=== PATIENT | female | born 1940 | race Caucasian/White ===

== ENCOUNTER 2017-03-27 12:36 | Observation (INO) | payer MEDICARE, OTHER, SELFPAY ==
[2017-03-27] VITALS (10 sets, daily range): BP systolic 137–182; BP diastolic 69–90; PULSE 51–82; RESP 14–16; TEMP 36.4–36.7; O2SAT 98–99; BMI 27.6; BMI 23.9; BMI 24.0
--- NOTE | 2017-03-27 13:06 | EKG12_ITS ---
Test Reason : SYNCOPE Blood Pressure : / mmHG Vent. Rate : 052 BPM Atrial Rate : 052 BPM P-R Int : 184 ms QRS Dur : 144 ms QT Int : 516 ms P-R-T Axes : 056 -36 083 degrees QTc Int : 479 ms Sinus bradycardia Left axis deviation Left bundle branch block Abnormal ECG Confirmed by RAN FORMAN, AMY ([id number]), metropolitan editor ELIZABETH BE ([id number] on 03/30/2017 8:39:12 AM Referred By: BRAYAN Confirmed By:AMY TONG MD
--- NOTE | 2017-03-27 13:06 | CT_ITS ---
STUDY: CT BRAIN WITHOUT CONTRAST REASON FOR EXAM: Female, 76 years old. Syncopal episode with closed head injury. RADIATION DOSAGE (If Supplied By Facility): CTDIvol = ( 44.99 ) mGy, DLP = ( 762.36 ) mGycm TECHNIQUE: Transaxial CT imaging of the brain was performed without administration of intravenous contrast material. Multiplanar reformations are submitted for interpretation. Individualized dose optimization techniques were used for this CT. COMPARISON: CT of the head dated September 23, 2016. FINDINGS: Normal soft tissue structures. Patient has had a left-sided lateral frontal and temporal craniotomy Normal size ventricles and extra-axial spaces for the patient's age. There are areas of decreased attenuation within the white matter tracts of the supratentorial brain, consistent with microvascular disease changes. There is encephalomalacia within the lateral left frontal lobe probably related to previous infarct or trauma. Normal basal ganglia and thalami. Normal brainstem. There is mild cerebellar atrophy. There is no intracranial hemorrhage. There is patchy atherosclerotic calcification of intracranial arteries. Normal visualized paranasal sinuses. CT/Brain/Head without Contrast IMPRESSION: 1. Chronic involutional changes of the brain. 2. Postoperative changes of the left cranium. 3. No CT evidence of acute intracranial hemorrhage. Electronically Signed: Alyssa Chan MD at 15:29 EST , Service support ,
[2017-03-27 13:31] LABS: ALB/GLOB Ratio 1.1 RATIO (0.9-2.4); AST(SGOT) 20 U/L (15-37); Alanine Aminotransfer ALT/SGPT 26 U/L (13-56); Albumin, Serum 3.8 g/dL (3.2-5.0); Alkaline Phosphatase 84 U/L (45-117); Anion Gap 7 (5-15); BUN 12 mg/dL (7-18); BUN/Creat Ratio 11.4 RATIO (10-20); Calcium,Total 8.8 mg/dL (8.5-10.1); Chloride 101 mmol/L (98-107); Creatinine, Serum 1.05 mg/dL (0.55-1.02); EST Glomerular Filtration Rate 54 mL/min (>60); Est Glom Filt Rate - Afr Amer 65 mL/min (>60); Estimated Creatinine Clearance 32.74 ml/min; Globulin 3.5 g/dL (2.2-4.2); Glucose 101 mg/dL (74-106); Potassium 3.6 mmol/L (3.5-5.1); Protein, Total 7.3 g/dL (6.4-8.2); Sodium Level 136 mmol/L (136-145)
[2017-03-27 13:35] LABS: Absolute Lymphocyte Count 1.93 X10^3/ul (0.83-4.51); Absolute Neutrophil Count 4.2 X10^3/uL (2.0-7.7); Basophil# 0.02 X10^3/uL; Basophil% 0.3 % (0-1); Eosinophil# 0.05 X10^3/uL; Eosinophils% 0.7 % (0-5); Hematocrit 36.2 % (37-47); Hemoglobin 12.1 g/dl (12.0-15.0); Lymphocyte # 1.93 X10^3/ul (4.0); Lymphocyte % 28.5 % (19-41); Mean Corp Hgb Conc 33.4 g/gl (32-36); Mean Corpuscular Hgb 28.9 pg (27.0-32.0); Mean Corpuscular Volume 86.4 fL (81-99); Mean Platelet Vol. 9.6 fl (6.2-12.0); Monocyte# 0.52 X10^3/uL; Monocyte% 7.7 % (0-10); Neutrophil # 4.24 X10^3/uL (2.7-7.7); Neutrophil % 62.7 % (47-70); Platelet Count 228 K/mm3 (150-450); RBC Distribution Width SD 40.9 fl (35.1-43.9); Red Blood Count 4.19 M/mm3 (4.2-5.4); White Blood Count 6.8 K/mm3 (4.4-11.0)
[2017-03-27 13:37] LABS: POSITIVE COUNT NO; POSITIVE DIFFERENTIAL NO; POSITIVE MORPHOLOGY NO
--- NOTE | 2017-03-27 14:15 | RAD_ITS ---
STUDY: X-RAY CHEST REASON FOR EXAM: Female, 76 years old. Cough. TECHNIQUE: PA and lateral views of the chest. COMPARISON: Prior comparison studies are not available for review at this time. FINDINGS: Cardiac monitoring leads are present. The lungs are clear and expanded. Surgical clips appear to be within the right chest. There is no demonstrated pleural abnormality. There is borderline cardiomegaly. Normal mediastinum and theodora. Normal visualized pulmonary arteries. There is atherosclerotic calcification of the aortic arch with tortuosity. Normal visualized thoracic spine. There are degenerative changes of both shoulders. There is no demonstrated abnormality of the visualized soft tissue structures of the upper abdomen. RAD/Chest PA and Lateral IMPRESSION: No radiographic evidence of acute cardiopulmonary disease. Electronically Signed: Alyssa Chan MD at 15:31 EST , Service support ,
[2017-03-27 15:26] LABS: Bacteria 0 SEEN /hpf (None Seen); Mucous, Urine 0 SEEN /hpf (<or=2+)
[2017-03-27 15:28] LABS: Color, Urine Yellow (Yellow); Glucose, Dipstick Normal (Normal); Ketone-Dipstick Negative (Negative); Leukocyte Esterase-Dipstick 100 /ul (Negative); Nitrite-Dipstick Negative (Negative); Occult Blood-Urine 10 /ul (Negative); Protein-Dipstick Negative (Negative); Urine Bilirubin Dipstick Negative (Negative); Urine Clarity Sl. Cloudy (Clear); Urine Urobilinogen Normal (Normal)
--- NOTE | 2017-03-27 15:39 | ED.VISSUMM ---
- ER Visit Summary Date of Service: 03/27/17 Chief Complaint: Passed out History of Present Illness: The patient is a 76 F presenting with a syncopal event. She states that she had a flulike illness 3 days ago that resolved but she did have some decreased p.o. intake for a few days. She basically just rested but admits that she probably did not drink enough water. She took all of her medications this morning and then went to the grocery store and was walking around quite a lot. While she was walking down an aisle, she felt lightheaded and then had a syncopal event and struck the back of her head. She woke up immediately and was not confused afterwards. She recalls feeling lightheaded and then recalls waking up on the floor but denies any associated injuries. She does not have a headache at this time. She basically feels back to normal now but in speaking with her and her family, it sounds like she has had trouble with lightheadedness for months. Physical Examination: Vitals are within normal limits except for mild hypertension at 182/90. Pulse is 56. Afebrile. Not in distress. Neck is supple. She is mildly bradycardic but no murmur. Lungs are clear bilaterally with good air movement. Neurologic exam is normal. Mental status exam normal. She has no signs of head trauma. Test Results: Labs are basically within normal limits. Flu swab negative. Chest x-ray negative. CT head negative. EKG reveals sinus bradycardia but no sign of block. Emergency Department Course and Treatment: She was given IV fluids and observed. Workup here basically unremarkable. Heart rate is in the 50s. Treatment Plan: She is on propranolol 80 mg twice a day which certainly could be contributing to her bradycardia and syncope. We discussed treatment options and elected to admit her as observation. Disposition: Admit telemetry observation Impression: Initial encounter syncope, bradycardia This note was generated with [employer] dictation software. It may contain incorrect words, spelling, and punctuation that were not noted in review of the chart prior to signing ED Disposition - Plan for ED Patient: Chief Complaint: Syncope Referrals: Rocío Geronimo MD [Primary Care Provider] -
[2017-03-27 15:50] LABS: Hyaline Cast 5-10 SEEN /lpf (0-5); Red Blood Cells-Urine 0-5 SEEN /hpf (0-5); Squamous Epithelial Cells - UA 0-5 SEEN /hpf (5-10); White Blood Cells 5-10 SEEN /hpf (0-5)
--- NOTE | 2017-03-27 15:56 | NURSING ---
PCU OBS SYNCOPE SEMENTI
--- NOTE | 2017-03-27 16:49 | PCM.HP.STD ---
Problem List (1) HTN (hypertension) Status: Chronic (2) HLD (hyperlipidemia) Status: Chronic (3) Syncope Status: Acute History of Present Illness Date of Admission: 03/27/17 Chief Complaint: Syncopal episode The patient is a 76 year old F who presents to the emergency room after a syncopal episode while grocery shopping this morning. Patient states this past Wednesday she felt like she had the flu. She states she felt generally weak and had fever, chills. Denies diarrhea, nausea, vomiting, upper respiratory symptoms. Symptoms went away gradually on their own and she states she felt generally well this morning. She denies symptoms prior to passing out this morning. She states it happened fairly quickly. She did hit the back of her head on the floor when she fell. She is unsure how long she was unconscious but thinks it was a fairly short period of time. She was helped to stand to her feet and passed out for a second time. The squad then arrived. Patient states she has actually had syncopal episodes the past 4-5 years. She has not previously sought out medical attention. Her at bedside states 3 weeks ago she had a syncopal episode at home. Patient states she believes these episodes happen when she is on her feet for an extended period of time. She has felt dizzy at times during these episodes in the past. Denies chest pain, shortness of breath, palpitations. Denies cardiac history or history of irregular heart rhythm. Denies other associated complaints. Her past medical history includes hypertension, hyperlipidemia, history of right breast cancer status post lumpectomy and radiation, s/p benign meningioma tumor resection. Past Medical History Past Medical History (Chronic Problems): Chronic Problems HTN (hypertension) (Chronic) HLD (hyperlipidemia) (Chronic) Allergies Sulfa (Sulfonamide Antibiotics) Allergy (Verified 03/27/17 12:43) Mucosal lesions meperidine [From Demerol] Adverse Reaction (Verified 03/27/17 12:43) Other metoprolol [From Toprol XL] Adverse Reaction (Verified 03/27/17 12:43) Unknown Home Medications: Ambulatory Orders Medication Instructions Recorded Ascorbic Acid [Vitamin C] 500 mg PO DAILY@0800 09/23/16 Aspirin [Aspirin, Baby] 81 mg PO DAILY@0809/23/16 Atorvastatin Calcium [Lipitor] 20 mg PO QHS 09/23/16 Calcium Carbonate [Tums Ultra 1,177 mg PO DAILY 09/23/16 Strength] Cholecalciferol (Vitamin D3) 1,000 unit PO QHS 09/23/16 [Vitamin D3] Fluticasone 0.05% [Flonase Nasal 1 spray NASAL DAILY PRN PRN 09/23/16 [place]] Indapamide 1.25 mg PO DAILY 09/23/16 Multivit-Min/Iron/Folic/Lutein 1 each PO DAILY 09/23/16 [Centrum Silver Women Tablet] [place]-3 Fatty Acids/Fish Oil [Fish 1 each PO DAILY 09/23/16 Oil 1,000 mg Capsule] Phenobarbital 30 mg PO DAILY 09/23/16 Potassium Chloride [Klor-Con 8] 8 meq PO BID 09/23/16 Propranolol HCl [Inderal (Beta 80 mg PO BID 09/23/16 Shay)] Surgical History: tonsillectomy, - - Benign meningioma tumor resection, right breast lumpectomy Psychiatric History: No pertinent psych hx [employer]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 Denies: Chest Pain, Palpitations Respiratory: Denies: Cough, Shortness of breath at rest, Sputum production Gastrointestinal: Denies: Abdominal Pain, Nausea, Vomiting Genitourinary: Denies: Dysuria Musculoskeletal: Denies: Joint Pain, Joint Tenderness Skin: Denies: Rash, Wounds Neurological: Denies: Numbness, Tingling, Focal weakness Psychiatric: Denies: Anxiety, Depression, Homicidal Ideations, Suicidal Ideations Hematologic/ Lymphatic: Denies: Easy Bruising, Easy Bleeding VTE Information - Inpt Only VTE Present on Admission: No VTE Mechan Device Prophylaxis: None VTE Pharm Prophylaxis ordered?: Yes Patient Problems: Active and Suspected Problems Syncope (Acute) - Physical Exam General: Alert, Oriented x3, Cooperative, No apparent distress HEENT: Atraumatic, PERRLA, EOMI, Normocephalic Neck: Supple, No JVD, Negative Carotid Bruits Lungs: Clear to auscultation, Normal air movement Cardiovascular: Regular Rhythm, Normal S1, Normal S2, No murmurs, Bradycardic Abdomen: Bowel Sounds Present, Soft, Non Tender, Non-Distended Extremities: No clubbing, No cyanosis, No edema, Capillary Refill Less than 3 Seconds Skin: No rashes, No breakdown Musculoskeletal: No Tenderness to Palpation of Joints or Extremities Neurological: Cranial nerves II-XII grossly intact, Neuro grossly intact Psych/Mental Status: Normal Affect, Appropriate Vital Signs Temp Pulse Resp BP Pulse Ox 97.5 F L 82 14 178/80 H 99 03/27/17 12:43 03/27/17 16:07 03/27/17 16:07 03/27/17 16:07 03/27/17 16:07 Oxygen Delivery Method Room Air Weight: 64.1 kg Body Mass Index (BMI) 27.6 Microbiology Past 72 Hours 03/27/17 13:48 Influenza Types A,B Direct FA (MARC) - Final Mucosa - Nose Laboratory Tests Past 24 Hrs 03/27/17 03/27/17 03/27/17 12:45 12:45 15:20 WBC 6.8 RBC 4.19 L Hgb 12.1 Hct 36.2 L MCV 86.4 MCH 28.9 MCHC 33.4 RDW 13.0 RDW Differential 40.9 Plt Count 228 MPV 9.6 Immature Gran % (Auto) 0.100 Neut % (Auto) 62.7 Lymph % (Auto) 28.5 [place] % (Auto) 7.7 Eos % (Auto) 0.7 Baso % (Auto) 0.3 Absolute Neuts (auto) 4.2 Absolute Lymphs (auto) 1.93 Total Counted Not Reportable Sodium 136 Potassium 3.6 Chloride 101 Carbon Dioxide 28.0 Anion Gap 7 BUN 12 Creatinine 1.05 H Estim Creat Clear Calc 32.74 Est GFR (MDRD) Af Amer 65 Est GFR (MDRD) Non-Af 54 L BUN/Creatinine Ratio 11.4 Glucose 101 Calcium 8.8 Total Bilirubin 0.40 AST 20 ALT 26 Alkaline Phosphatase 84 Total Protein 7.3 Albumin 3.8 Globulin 3.5 Albumin/Globulin Ratio 1.1 Urine Color Yellow Urine Clarity Sl. Cloudy Urine pH 7.0 Ur Specific Agness 1.010 Urine Protein Negative Urine Glucose (UA) Normal Urine Ketones Negative Urine Occult Blood 10 H Urine Nitrite Negative Urine Bilirubin Negative Urine Urobilinogen Normal Ur Leukocyte Esterase 100 H Urine RBC 0-5 SEEN Urine WBC 5-10 SEEN Ur Squamous Epith Cells 0-5 SEEN Urine Bacteria 0 SEEN Hyaline Casts 5-10 SEEN Urine Mucus 0 SEEN Assessment/Plan Active and Suspected Problems Syncope (Acute) 1. Syncope-Suspect secondary to bradycardia as a result of high dose beta shay. Patient previously on propanolol 80 mg p.o. twice daily. This was discontinued and she was started on metoprolol 25 mg twice daily. Complete echocardiogram. Cardiac enzymes. Monitor telemetry. Check orthostatic vitals. Check TSH, mag. Patient mildly dehydrated with recent illness and poor oral intake. Gentle IV fluids. Chest x-ray unremarkable. Brain CT with chronic changes. Urinalysis unremarkable. 2. Hypertension-BP elevated on admission,181/69. Propanolol home dose discontinued given bradycardia. Started on metoprolol 25 mg twice daily. Continue to monitor blood pressure make further adjustments as needed. Hydralazine as needed Q4 for systolic greater than 160. 3. Hyperlipidemia-continue statin. Check lipid panel in a.m. DVT prophylaxis-Heparin SC, SCDs. This patient was seen by DANI Hancock under the supervision of Dr. Johns.
--- NOTE | 2017-03-27 17:15 | ECHOD_ITS ---
Reason For Study: SYNCOPE/NEAR SYNCOPE Procedure This was a 2D Doppler, Color Flow transthoracic echocardiogram. Exam performed portable in patient room. Left Ventricle Normal LV size. Left ventricular systolic function is normal. The estimated ejection fraction is 65 %. Transmitral and pulmonary venous doppler flow suggestive of impaired relaxation of left ventricle. No regional wall motion abnormalities noted. Right Ventricle Normal RV size. Normal systolic function. Atria Normal left atrium. Normal right atrium. Mitral Valve Normal mitral valve. Tricuspid Valve Normal tricuspid valve. Mild (1+) tricuspid valve insufficiency. Pulmonary artery systolic pressure is 29 mmHg. Aortic Valve Normal aortic valve. Pulmonic Valve Normal pulmonic valve. Great Vessels Normal aortic root. The pulmonary artery is normal size. Normal inferior vena cava. Pericardium/Pleural No pericardial effusion. MMode/2D Measurements & Calculations LVIDd: 4.3 cm IVSd: 0.89 cm Ao root diam: 2.3 cm LVIDs: 2.9 cm LVPWd: 0.92 cm LA dimension: 3.3 cm RVDd: 3.4 cm FS: 31.6 % LAV(MOD-bp): 27.4 ml LA A4 area: 11.4 cm2 LAV(MOD-bp) Indexed: 17.0 ml/m2 LAV(MOD-sp2): 26.2 ml LAV(MOD-sp4): 29.4 ml Doppler Measurements & Calculations MV E max joe: 93.1 cm/sec Lat Peak E' Joe: 7.8 cm/sec Med Peak E' Joe: 11.0 cm/sec MV A max joe: 139.5 cm/sec E/E' lat: 11.9 E/E' med: 8.5 MV E/A: 0.67 Ao V2 max: 176.6 cm/sec LV V1 max: 95.3 cm/sec PA V2 max: 131.0 cm/sec Ao max P.5 mmHg LV V1 max P.6 mmHg TR max joe: 245.5 cm/sec TR max P.2 mmHg Interpretation Summary Normal LV size. Left ventricular systolic function is normal. The estimated ejection fraction is 65 %. Transmitral and pulmonary venous doppler flow suggestive of impaired relaxation of left ventricle Mild (1+) tricuspid valve insufficiency. Pulmonary artery systolic pressure is 29 mmHg. Ordering Physician: DANI Hancock Referring Physician: Rocío Geronimo Performed By: Maya Esposito, NARESH, RVT
[2017-03-27 17:46] LABS: Magnesium 2.1 mg/dL (1.6-2.6); Thyroid Stim Hormone (TSH) 3.38 uIU/mL (0.358-3.74)
--- NOTE | 2017-03-27 18:15 | ED.RN ---
Reynaldo from pharmacy phones questioning patient being on Metoprolol due to allergy. Patient states she is unsure what her allergic reaction was. Updated Dr. Johns. D/C Metoprolol. Dr. Johns also updated on orthostatic bp's.
[2017-03-27] MEDS: Atorvastatin Calcium 20 MG Tablet PO (21:26)
[2017-03-27] MEDS: Heparin Injection 5,000 UNITS/ML Syringe 5000 UNITS SC (21:26)
[2017-03-28] VITALS (11 sets, daily range): BP systolic 137–166; BP diastolic 64–86; PULSE 56–81; RESP 15–18; TEMP 36.2–36.7; O2SAT 97–99
[2017-03-28] MEDS: 0.9% Normal Saline 1,000 ML 75 ML IV ×2 (05:45→18:37)
[2017-03-28] MEDS: Aspirin 81 MG TAB.CHEW PO (08:21)
[2017-03-28] MEDS: Heparin Injection 5,000 UNITS/ML Syringe 5000 UNITS SC ×2 (08:22→21:23)
[2017-03-28] MEDS: Calcium Carbonate 500 MG Tablet 1000 MG PO (08:22)
[2017-03-28 08:32] LABS: Anion Gap 7 (5-15); BUN 12 mg/dL (7-18); BUN/Creat Ratio 15.6 RATIO (10-20); Calcium,Total 8.8 mg/dL (8.5-10.1); Chloride 104 mmol/L (98-107); Cholesterol 198 mg/dL (200); Creatinine, Serum 0.77 mg/dL (0.55-1.02); EST Glomerular Filtration Rate 77 mL/min (>60); Est Glom Filt Rate - Afr Amer 94 mL/min (>60); Estimated Creatinine Clearance 36.12 ml/min; Glucose 90 mg/dL (74-106); High Density Lipoprotein 61 mg/dL; Potassium 3.4 mmol/L (3.5-5.1); Sodium Level 140 mmol/L (136-145); Triglycerides 145 mg/dL; Very Low Density Lipoprotein 29 mg/dL (5-40)
--- NOTE | 2017-03-28 10:57 | PN_ITS ---
Patient Problems: Active and Suspected Problems Syncope (Acute) Subjective: Patient seen and examined. Resting in chair reading a magazine. Denies further dizziness, syncope. Denies chest pain, shortness of breath. She denies other complaints at this time. - Physical Exam General: Alert, Oriented x3, Cooperative, No apparent distress HEENT: Atraumatic, PERRLA, EOMI, Normocephalic Neck: Supple, No JVD, Negative Carotid Bruits Lungs: Clear to auscultation, Normal air movement Cardiovascular: Regular rate, Regular Rhythm, Normal S1, Normal S2, No murmurs Abdomen: Bowel Sounds Present, Soft, Non Tender, Non-Distended Extremities: No clubbing, No cyanosis, No edema, Capillary Refill Less than 3 Seconds Skin: No rashes, No breakdown Musculoskeletal: No Tenderness to Palpation of Joints or Extremities Neurological: Cranial nerves II-XII grossly intact, Neuro grossly intact Psych/Mental Status: Normal Affect, Appropriate Vital Signs Temp Pulse Resp BP Pulse Ox 98.1 F 63 16 166/77 H 99 03/28/17 10:36 03/28/17 10:36 03/28/17 10:36 03/28/17 10:36 03/28/17 10:36 Oxygen Delivery Method Room Air Weight: 57.5 kg Body Mass Index (BMI) 23.9 Orthostatic Vital Signs Start: 03/27/17 17:41 Freq: q24h Status: Active Protocol: Activity Type Activity Date Activity User E-Sign Co-Sign Detail Recorded Client Recorded Date Recorded By Document 03/28/17 04:00 EY [id number] 03/28/17 04:52 EY 03/28/17 04:00 Orthostatic Vitals Standing -Blood Pressure (90/60-120/80) 137/86 H -Extremity Use Left Arm -Pulse Rate (60-100) 61 Sitting -Blood Pressure (90/60-120/80) 150/68 H -Extremity Use Left Arm -Pulse Rate (60-100) 60 Lying -Blood Pressure (90/60-120/80) 147/64 H -Extremity Use Left Arm -Pulse Rate (60-100) 57 L Intake and Output for Last 24 Hours 03/26/17 03/27/17 03/28/17 23:59 23:59 23:59 Intake Total 646 / 646 544 / 544 Balance 646 / 646 544 / 544 Laboratory Tests Past 24 Hrs 03/27/17 03/27/17 03/27/17 17:05 17:40 21:08 Sodium Potassium Chloride Carbon Dioxide Anion Gap BUN Creatinine Estim Creat Clear Calc Est GFR (MDRD) Af Amer Est GFR (MDRD) Non-Af BUN/Creatinine Ratio Glucose Calcium Magnesium 2.1 Troponin I < 0.02 < 0.02 Triglycerides Cholesterol LDL Cholesterol VLDL Cholesterol HDL Cholesterol TSH 3.38 03/28/17 03/28/17 03/28/17 01:14 07:40 07:40 Sodium 140 Potassium 3.4 L Chloride 104 Carbon Dioxide 29.0 Anion Gap 7 BUN 12 Creatinine 0.77 Estim Creat Clear Calc 36.12 Est GFR (MDRD) Af Amer 94 Est GFR (MDRD) Non-Af 77 BUN/Creatinine Ratio 15.6 Glucose 90 Calcium 8.8 Magnesium Troponin I < 0.02 < 0.02 Triglycerides 145 Cholesterol 198 LDL Cholesterol 108 VLDL Cholesterol 29 HDL Cholesterol 61 TSH Assessment/Plan Active and Suspected Problems Syncope (Acute) Patient is a 76-year-old female admitted 03/27/17 due to syncopal episode. Her past medical history includes hypertension, hyperlipidemia, history of right breast cancer status post lumpectomy and radiation, s/p benign meningioma tumor resection. 1. Syncope-Suspect secondary to bradycardia as a result of high dose beta shay. Patient previously on propanolol 80 mg p.o. twice daily. This was discontinued and she was started on metoprolol 25 mg twice daily. Heart rate improving. Patient denies further dizziness, syncope. Echocardiogram to be completed tomorrow morning. Telemetry without arrhythmias. Orthostatic vitals negative. Troponin negative ?4. TSH and mag normal. Patient mildly dehydrated with recent illness and poor oral intake. Continue gentle IV fluids. Chest x- ray unremarkable. Brain CT with chronic changes. Urinalysis unremarkable. 2. Hypertension-BP elevated on admission,181/69. Blood pressure has since improved. Propanolol home dose discontinued given bradycardia. Started on metoprolol 25 mg twice daily. Continue to monitor blood pressure make further adjustments as needed. Hydralazine as needed Q4 for systolic greater than 160. 3. Hyperlipidemia-continue statin. Lipid panel within normal limits. DVT prophylaxis-Heparin SC, SCDs. This patient was seen by DANI Hancock under the supervision of Dr. Johns.
[2017-03-28] MEDS: Acetaminophen 325 MG Tablet 650 MG PO (21:22)
[2017-03-28] MEDS: Atorvastatin Calcium 20 MG Tablet PO (21:22)
[2017-03-28] MEDS: MELATONIN 3 MG TABLET PO (23:26)
[2017-03-29] VITALS (14 sets, daily range): BP systolic 137–177; BP diastolic 67–80; PULSE 60–92; RESP 16–18; TEMP 36.4–37.5; O2SAT 95–99
[2017-03-29] MEDS: 0.9% Normal Saline 1,000 ML 75 ML IV ×2 (04:34→23:43)
[2017-03-29 05:49] LABS: Anion Gap 10 (5-15); BUN 11 mg/dL (7-18); BUN/Creat Ratio 15.3 RATIO (10-20); Calcium,Total 8.7 mg/dL (8.5-10.1); Chloride 107 mmol/L (98-107); Creatinine, Serum 0.72 mg/dL (0.55-1.02); EST Glomerular Filtration Rate 84 mL/min (>60); Est Glom Filt Rate - Afr Amer 102 mL/min (>60); Estimated Creatinine Clearance 36.12 ml/min; Glucose 94 mg/dL (74-106); Potassium 3.2 mmol/L (3.5-5.1); Sodium Level 141 mmol/L (136-145)
[2017-03-29] MEDS: Aspirin 81 MG TAB.CHEW PO (07:52)
[2017-03-29] MEDS: 0.9% NaCl Peripheral Flush Adult/Peds IV (08:04)
[2017-03-29] MEDS: 0.9% Normal Saline 1,000 ML 999 ML IV (08:52)
--- NOTE | 2017-03-29 08:52 | PN_ITS ---
Patient Problems: Active and Suspected Problems Syncope (Acute) Subjective: CC: s/p syncope This is a 76-year-old female who had a syncopal event this morning, she did lose consciousness , she denied any chest pain, palpitations or rapid heartbeat prior to the episode. Rapid Response was activated and she was found to be hypotensive with systolic blood pressure in the 70s immediately after the event. Vitals/I&O's: Vital Signs Temp Pulse Resp BP Pulse Ox 98.0 F 71 16 153/74 H 98 03/29/17 03:20 03/29/17 08:03 03/29/17 03:20 03/29/17 03:20 03/29/17 04:10 Oxygen Delivery Method Room Air Weight: 57.5 kg Body Mass Index (BMI) 23.9 Orthostatic Vital Signs Start: 03/27/17 17:41 Freq: q24h Status: Active Protocol: Activity Type Activity Date Activity User E-Sign Co-Sign Detail Recorded Client Recorded Date Recorded By Document 03/29/17 03:20 [email or web address] [id number] 03/29/17 04:32 KG 03/29/17 03:20 Orthostatic Vitals Standing -Blood Pressure (90/60-120/80) 147/72 H -Extremity Use Left Arm -Pulse Rate (60-100) 83 Sitting -Blood Pressure (90/60-120/80) 137/80 H -Extremity Use Left Arm -Pulse Rate (60-100) 74 Lying -Blood Pressure (90/60-120/80) 153/74 H -Extremity Use Left Arm -Pulse Rate (60-100) 72 Intake and Output for Last 24 Hours 03/27/17 03/28/17 03/29/17 23:59 23:59 23:59 Intake Total 646 / 646 2347 / 2347 1252 / 1252 Output Total 1550 / 1550 600 / 600 Balance 646 / 646 797 / 797 652 / 652 Laboratory Results 03/29/17 05:00: Sodium 141, Potassium 3.2 L, Chloride 107, Carbon Dioxide 24.0, Anion Gap 10, BUN 11, Creatinine 0.72, Estim Creat Clear Calc 36.12, Est GFR ( MDRD) Af Amer 102, Est GFR (MDRD) Non-Af 84, BUN/Creatinine Ratio 15.3, Glucose 94, Calcium 8.7 03/29/17 05:00: Magnesium Pending Current Medications Acetaminophen (Tylenol) 650 mg PO Q6H PRN PRN PRN Reason: Mild Pain (scale 0-3)/T>100.7 Last Admin: 03/28/17 21:22 Dose: 650 mg Al Hydroxide/Mg Hydroxide (Mylanta Ii) 30 ml PO Q6H PRN PRN PRN Reason: Gastric Burning Aspirin (Aspirin, Baby) 81 mg PO DAILY@0800 [facility] Last Admin: 03/29/17 07:52 Dose: 81 mg Atorvastatin Calcium (Lipitor) 20 mg PO QHS [facility] Last Admin: 03/28/17 21:22 Dose: 20 mg Bisacodyl (Dulcolax) 10 mg PO DAILY PRN PRN PRN Reason: Constipation [facility]) [facility] Last Admin: 03/28/17 08:22 Dose: 1,000 mg Cholecalciferol (Vitamin D) 1,000 unit PO QHS [facility] Last Admin: 03/28/17 21:22 Dose: 1,000 unit Fluticasone Propionate (Flonase Nasal [place]) 1 spray NASAL DAILY PRN PRN PRN Reason: SINUS CONGESTION Heparin Sodium (Porcine) () 5,000 units SC BID [facility] Last Admin: 03/28/17 21:23 Dose: 5,000 units Hydralazine HCl (Apresoline) 10 mg IV Q4H PRN PRN PRN Reason: [id number] Last Admin: 03/29/17 08:03 Dose: 10 mg Sodium Chloride () 1,000 mls @ 75 mls/hr IV .[id number] [facility] Last Admin: 03/29/17 04:34 Dose: 75 mls/hr Sodium Chloride () 1,000 mls @ 999 mls/hr IV .Q1H1M ONE Stop: 03/29/17 09:43 Potassium Chloride (Kcl 10meq/100ml) 10 meq in 100 mls @ 100 mls/hr IV BOLUS Q1H [facility] Stop: 03/29/17 11:59 Magnesium Hydroxide (Milk Of Magnesia) 30 ml PO DAILY PRN PRN Reason: Constipation Melatonin (Melatonin) 3 mg PO 4X/DAY PRN PRN PRN Reason: ANXIETY Last Admin: 03/28/17 23:26 Dose: 3 mg Ondansetron HCl (Zofran) 4 mg IV Q8H PRN PRN PRN Reason: Nausea Potassium Chloride (K-Dur) 10 meq PO BIDCM ASHLYN Last Admin: 03/28/17 16:42 Dose: 10 meq Sodium Chloride () 5 - 30 ml IV UD PRN PRN Reason: SALINE FLUSH Last Admin: 03/29/17 08:04 Dose: 10 ml Assessment/Plan Active and Suspected Problems Syncope (Acute) 1. Recurrent Syncope; the event this morning was most likely vasovagal as patient was noted to be hypotensive immediately after the episode. she was given IV fluids and we will hold antihypertensive agents. Obtain echocardiogram, cardiology consultation. 2. Hypotension; discontinue her antihypertensive agents and give fluid bolus with normal saline. 3. Hypokalemia this will be replaced with potassium chloride and magnesium level will also be checked. 4. history of Essential hypertension; we will hold off on antihypertensive agents and monitor blood pressure closely. 5. history of right breast cancer status post lumpectomy and radiation . 6. DVT prophylaxis; Heparin SC, SCDs. Code Visit Inpatient E&M: [id number] Subs Hosp L3
[2017-03-29 08:56] LABS: Bedside Glucose 157 mg/dL (70-110)
--- NOTE | 2017-03-29 08:57 | NURSING ---
Pt was assisted to restroom by [facility] [employer]. Pt had a syncopal episode while sitting in the chair washing up. Pt was unresponsive, unable to follow commands, but was still conscious. Blood glucose checked and was WNL. Pt was assisted to a wheelchair and placed in bed. BP was hypotensive. HR was bradycardia. MD into see pt and placing orders. Fluid bolus started. Pt a/ox3. Does not remember any events after passing out. Resting in bed comfortably now. MD placing orders.
[2017-03-29 09:05] LABS: Magnesium 2.1 mg/dL (1.6-2.6)
[2017-03-29] MEDS: Heparin Injection 5,000 UNITS/ML Syringe 5000 UNITS SC ×2 (09:35→21:35)
[2017-03-29] MEDS: Calcium Carbonate 500 MG Tablet 1000 MG PO (09:35)
[2017-03-29] MEDS: Fluticasone 0.05% 1 SPRAY NASAL.SRY NASAL (13:45)
[2017-03-29] MEDS: Acetaminophen 325 MG Tablet 650 MG PO (13:49)
--- NOTE | 2017-03-29 14:51 | CASEMGMT ---
This RN CM to bedside with STRAUSS form for pt to sign. Pt's daughter also at bedside. STRAUSS form explained and signed by pt at this time. Original to chart and copy to pt/daughter at this time. Daughter asks questions about stress test and cardiology consult. This RN CM received update from Chayito, PCU charge, and then updated pt and daughter at this time, voices understanding. [facility]
--- NOTE | 2017-03-29 17:52 | CON.PCM_ITS ---
Reason for Consult Date of Consultation: 03/29/17 Reason for Consultation: Syncopal episode History of Present Illness: The patient is a 76 year old F who presents to the emergency room after a syncopal episode while grocery shopping this morning. Patient states this past Wednesday she felt like she had the flu. She states she felt generally weak and had fever, chills. Denies diarrhea, nausea, vomiting, upper respiratory symptoms. Symptoms went away gradually on their own and she states she felt generally well this morning. She denies symptoms prior to passing out this morning. She states it happened fairly quickly. He however could tell that it was coming on and she did hit the back of her head on the floor when she fell. She is unsure how long she was unconscious but thinks it was a fairly short period of time. She was helped to stand to her feet and passed out for a second time. Patient states she has actually had syncopal episodes the past 4 -5 years. She has not previously sought out medical attention. Her at bedside states 3 weeks ago she had a syncopal episode at home. Patient states she believes these episodes happen when she is on her feet for an extended period of time. She has felt dizzy at times during these episodes in the past. Denies chest pain, shortness of breath, palpitations. Denies cardiac history or history of irregular heart rhythm. Had an episode today while in the bathroom in the hospital and she could tell it coming on. Rapid response was called and at that time she was found she was noted to be bradycardic as well as hypotensive. She was given intravenous fluid boluses and has improved. She previously was on propranolol which has been discontinued. Past Medical History Allergies/Adverse Reactions: Allergies Sulfa (Sulfonamide Antibiotics) Allergy (Verified 03/27/17 12:43) Mucosal lesions meperidine [From Demerol] Adverse Reaction (Verified 03/27/17 12:43) Other metoprolol [From Toprol XL] Adverse Reaction (Verified 03/27/17 12:43) Unknown Home Medications: Ambulatory Orders Medication Instructions Recorded Ascorbic Acid [Vitamin C] 500 mg PO DAILY@0800 09/23/16 Aspirin [Aspirin, Baby] 81 mg PO QHS 09/23/16 Atorvastatin Calcium [Lipitor] 20 mg PO QHS 09/23/16 Calcium Carbonate [Tums Ultra 1,177 mg PO QHS 09/23/16 Strength] Cholecalciferol (Vitamin D3) 1,000 unit PO QHS 09/23/16 [Vitamin D3] Fluticasone 0.05% [Flonase Nasal 1 spray NASAL DAILY PRN PRN 09/23/16 [place]] Indapamide 1.25 mg PO DAILY 09/23/16 Multivit-Min/Iron/Folic/Lutein 1 each PO DAILY 09/23/16 [Centrum Silver Women Tablet] [place]-3 Fatty Acids/Fish Oil [Fish 1 each PO DAILY 09/23/16 Oil 1,000 mg Capsule] Potassium Chloride [Klor-Con 8] 8 meq PO BID 09/23/16 Propranolol HCl [Inderal (Beta 80 mg PO BID 09/23/16 Mya)] Phenobarbital 32.4 mg PO BID 03/27/17 Past Medical History (Chronic Problems): Chronic Problems HTN (hypertension) (Chronic) HLD (hyperlipidemia) (Chronic) Surgical History: tonsillectomy, - - Benign meningioma tumor resection, right breast lumpectomy Psychiatric History: No pertinent psych hx 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 Denies: Chest Discomfort, Shortness of Breath, Orthopnea, PND, Peripheral Edema, Palpitations, Lightheadedness, Dizziness Respiratory: Denies: Cough, Sputum Production, Hemoptysis Gastrointestinal: Denies: Hematemesis, Hematochezia, Melena Genitourinary: Denies: Dysuria, Hematuria Skin: Denies: Rash Subjectve: Pleasant lady in no apparent distress Objective: Vital Signs Temp Pulse Resp BP Pulse Ox 98.8 F 80 18 155/78 H 99 03/29/17 15:30 03/29/17 15:30 03/29/17 15:30 03/29/17 15:30 03/29/17 15:30 Oxygen Delivery Method Room Air Weight: 126 lb 12.253 oz Body Mass Index (BMI) 23.9 Orthostatic Vital Signs Start: 03/27/17 17:41 Freq: q24h Status: Active Protocol: Activity Type Activity Date Activity User E-Sign Co-Sign Detail Recorded Client Recorded Date Recorded By Document 03/29/17 03:20 KG [id number] 03/29/17 04:32 KG 03/29/17 03:20 Orthostatic Vitals Standing -Blood Pressure (90/60-120/80 mm Hg) 147/72 H -Extremity Use Left Arm -Pulse Rate (60-100 beats/min) 83 Sitting -Blood Pressure (90/60-120/80 mm Hg) 137/80 H -Extremity Use Left Arm -Pulse Rate (60-100 beats/min) 74 Lying -Blood Pressure (90/60-120/80 mm Hg) 153/74 H -Extremity Use Left Arm -Pulse Rate (60-100 beats/min) 72 Intake and Output for Last 24 Hours 03/27/17 03/28/17 03/29/17 23:59 23:59 23:59 Intake Total 646 / 646 2347 / 2347 2837 / 2837 Output Total 1550 / 1550 2375 / 2375 Balance 646 / 646 797 / 797 462 / 462 General: Awake, Alert, Oriented x 3 HEENT: PERRL, EOMI, Sclera Non Icteric Neck: Supple, Good ROM, No Lymph Node Enlargement Lungs: Clear to auscultation Cardiovascular: Regular Rhythm, Normal S1, Normal S2, No Murmurs, No Rubs, No Gallops Vascular: No Carotid Bruits, Normal Femoral Pulses, Normal Radial Pulses, Normal Dorsalis Pedal Pulse, Normal Posterior Tibial Pulses Abdomen: Bowel Sounds Present, Soft, Non Tender, No HSM, No Organomegaly Extremities: No Cyanosis, No Clubbing, No edema Neurological: No Focal Motor or Sensory Deficit 03/29/17 05:00: Sodium 141, Potassium 3.2 L, Chloride 107, Carbon Dioxide 24.0, Anion Gap 10, BUN 11, Creatinine 0.72, Est GFR (MDRD) Af Amer 102, Est GFR (MDRD ) Non-Af 84, BUN/Creatinine Ratio 15.3, Glucose 94, Calcium 8.7 03/29/17 05:00: Magnesium 2.1 Rhythm: EKG: Sinus rhythm with a left bundle branch block ECHO: Normal ejection fraction of 65% with normal pulmonary artery systolic pressure Assessment/Plan 1. Recurrent syncope The etiology of the above is not entirely clear at this time but it appears to be more related to a vasovagal or vasodepressor event. My recommendation at this time will be for her to discontinue the indapamide permanently and to be resuscitated with intravenous fluid for at least 24 hours. It may be prudent to watch her blood pressure off any medication at this time. She does have a hyperdynamic ventricle on the echocardiogram and perhaps with relative dehydration this is leading to some of her symptoms. She however does have a left bundle branch block noted on her EKG and therefore a progressive conduction system block causing the above cannot be completely excluded. We will continue to monitor her by telemetry over the next 24 hours. I would also recommend that after she is discharged we place a 30 day event monitor to see whether we may be able to capture any cardiac dysrhythmias. 2. Hypertension She does appear to have mild hypertension which I would suggest observing for now. She was previously on propranolol and even though we have not seen any rebound tachycardia I will suggest that we observe her closely with no medications. I have explained the above to Ms. Vasquez and her daughter. Thank you for allowing me to participate in the care of your patient. Please don't hesitate to call if any issues arise
[2017-03-29] MEDS: Atorvastatin Calcium 20 MG Tablet PO (21:34)
[2017-03-30 03:00] VITALS: PULSE 63
[2017-03-30 03:30] VITALS: BP 164/77; BP 169/70; PULSE 76; PULSE 82; RESP 18; TEMP 37; O2SAT 98
--- NOTE | 2017-03-30 05:55 | EKG12_ITS ---
Test Reason : AM EKG Blood Pressure : / mmHG Vent. Rate : 076 BPM Atrial Rate : 076 BPM P-R Int : 162 ms QRS Dur : 130 ms QT Int : 422 ms P-R-T Axes : 044 -13 092 degrees QTc Int : 474 ms Normal sinus rhythm Left bundle branch block Abnormal ECG Confirmed by CATALINA FORMAN, YUMIKO ([id number]), newspaper or periodical editor ELIZABETH BE ([id number]) on 03/31/2017 2:58:29 PM Referred By: MAITE Confirmed By:YUMIKO ARNOLD MD
[2017-03-30 07:18] VITALS: PULSE 76
--- NOTE | 2017-03-30 07:32 | PCM.PN.CARD ---
Subjectve: Patient was seen and evaluated he has been doing well sleeping. Did not have any issues overnight Objective: Vital Signs Temp Pulse Resp BP Pulse Ox 98.6 F 76 18 169/70 H 98 03/30/17 03:30 03/30/17 07:18 03/30/17 03:30 03/30/17 03:30 03/30/17 03:30 Oxygen Delivery Method Room Air Weight: 126 lb 12.253 oz Body Mass Index (BMI) 23.9 Orthostatic Vital Signs Start: 03/27/17 17:41 Freq: q24h Status: Active Protocol: Activity Type Activity Date Activity User E-Sign Co-Sign Detail Recorded Client Recorded Date Recorded By Document 03/30/17 03:30 HS [id number] 03/30/17 03:37 HS 03/30/17 03:30 Orthostatic Vitals Sitting -Blood Pressure (90/60-120/80 mm Hg) 164/77 H -Extremity Use Left Arm -Pulse Rate (60-100 beats/min) 82 Lying -Blood Pressure (90/60-120/80 mm Hg) 169/70 H -Extremity Use Left Arm -Pulse Rate (60-100 beats/min) 76 Intake and Output for Last 24 Hours 03/28/17 03/29/17 03/30/17 23:59 23:59 23:59 Intake Total 2347 / 2347 3628 / 3628 958 / 958 Output Total 1550 / 1550 3800 / 3800 1500 / 1500 Balance 797 / 797 -172 / -172 -542 / -542 General: Awake, Alert, Oriented x 3 HEENT: PERRL, EOMI, Sclera Non Icteric Neck: Supple, Good ROM, No Lymph Node Enlargement Lungs: Clear to auscultation Cardiovascular: Regular Rhythm, Normal S1, Normal S2, No Murmurs, No Rubs, No Gallops Vascular: No Carotid Bruits, Normal Femoral Pulses, Normal Radial Pulses, Normal Dorsalis Pedal Pulse, Normal Posterior Tibial Pulses Abdomen: Bowel Sounds Present, Soft, Non Tender, No HSM, No Organomegaly Extremities: No Cyanosis, No Clubbing, No edema Neurological: No Focal Motor or Sensory Deficit 03/29/17 05:00: Magnesium 2.1 Rhythm: EKG: Sinus rhythm with a left bundle branch block ECHO: preserved left ventricular systolic function Assessment/Plan 1. Recurrent syncope The etiology of the above is not entirely clear at this time but it appears to be more related to a vasovagal or vasodepressor event. My recommendation at this time will be for her to discontinue the indapamide permanently and to be resuscitated with intravenous fluid for at least 24 hours. It may be prudent to watch her blood pressure off any medication at this time. She does have a hyperdynamic ventricle on the echocardiogram and perhaps with relative dehydration this is leading to some of her symptoms. She however does have a left bundle branch block noted on her EKG and therefore a progressive conduction system block causing the above cannot be completely excluded. Telemetry monitoring thus far has not demonstrated any pauses. I would also recommend that after she is discharged we place a 30 day event monitor to see whether we may be able to capture any cardiac dysrhythmias. 2. Hypertension She does appear to have mild hypertension which I would suggest observing for now. She was previously on propranolol and even though we have not seen any rebound tachycardia I will suggest that we observe her closely with no medications. I have explained the above to Ms. Vasquez and her daughter. After She ambulates today if she is stable she can be discharged for outpatient follow-up in my office. With the event monitor. Thank you for allowing me to participate in the care of your patient. Please don't hesitate to call if any issues arise
[2017-03-30] MEDS: Calcium Carbonate 500 MG Tablet 1000 MG PO (08:07)
[2017-03-30] MEDS: Aspirin 81 MG TAB.CHEW PO (08:07)
[2017-03-30] MEDS: Fluticasone 0.05% 1 SPRAY NASAL.SRY NASAL (08:07)
[2017-03-30 08:35] LABS: Anion Gap 10 (5-15); BUN 7 mg/dL (7-18); BUN/Creat Ratio 11.5 RATIO (10-20); Calcium,Total 8.8 mg/dL (8.5-10.1); Chloride 109 mmol/L (98-107); Creatinine, Serum 0.61 mg/dL (0.55-1.02); EST Glomerular Filtration Rate 101 mL/min (>60); Est Glom Filt Rate - Afr Amer 123 mL/min (>60); Estimated Creatinine Clearance 36.12 ml/min; Glucose 93 mg/dL (74-106); Potassium 3.3 mmol/L (3.5-5.1); Sodium Level 141 mmol/L (136-145)
[2017-03-30 09:15] VITALS: BP 157/81; PULSE 78; RESP 16; TEMP 36.9; O2SAT 96
[2017-03-30] MEDS: Heparin Injection 5,000 UNITS/ML Syringe 5000 UNITS SC (10:10)
[2017-03-30 11:03] VITALS: PULSE 73
[2017-03-30] MEDS: 0.9% Normal Saline 1,000 ML 75 ML IV (11:16)
--- NOTE | 2017-03-30 11:56 | PCM.DC ---
- Discharge Diagnoses Current Active Problems: Current Active and Chronic Problems HTN (hypertension) (Chronic) HLD (hyperlipidemia) (Chronic) Syncope (Acute) You will use the following diet at home:: No restrictions Discharge Activity: Return to Normal Activity Allergies/Adverse Reactions: Allergies Sulfa (Sulfonamide Antibiotics) Allergy (Verified 03/27/17 12:43) Mucosal lesions meperidine [From Demerol] Adverse Reaction (Verified 03/27/17 12:43) Other metoprolol [From Toprol XL] Adverse Reaction (Verified 03/27/17 12:43) Unknown Medications to take at Discharge Ascorbic Acid [Vitamin C] 500 mg PO DAILY@0800 09/23/16 Aspirin [Aspirin, Baby] 81 mg PO QHS 09/23/16 Atorvastatin Calcium [Lipitor] 20 mg PO QHS 09/23/16 Calcium Carbonate [Tums Ultra Strength] 1,177 mg PO QHS 09/23/16 Cholecalciferol (Vitamin D3) [Vitamin D3] 1,000 unit PO QHS 09/23/16 Fluticasone 0.05% [Flonase Nasal [place]] 1 spray NASAL DAILY PRN PRN 09/23/16 Multivit-Min/Iron/Folic/Lutein [Centrum Silver Women Tablet] 1 each PO DAILY 09/23/16 [place]-3 Fatty Acids/Fish Oil [Fish Oil 1,000 mg Capsule] 1 each PO DAILY 09/23/16 Potassium Chloride [Klor-Con 8] 8 meq PO BID 09/23/16 Phenobarbital 32.4 mg PO BID 03/27/17 Orders to be completed after discharge: Cardiac Holter Monitor/Day [[facility]] Time Frame: 30 Days, Location: None Selected Primary Care Physician: Rocío Geronimo MD [Primary Care Provider] - Within 2 Weeks Please Follow Up With: Rohan Geiger MD - 4 weeks Proposed Discharge Date: 03/30/17
--- NOTE | 2017-03-30 11:58 | PCM.DC.SUM ---
Discharge Date and Diagnosis Date of Admission: 03/27/17 Date of Discharge: 03/30/17 - Primary Discharge Diagnosis Active and Suspected Problems Syncope (Acute) - Secondary Discharge Diagnosis Chronic Problems HTN (hypertension) (Chronic) HLD (hyperlipidemia) (Chronic) Hospital Course and Treatment Summary of Care Provided: Aydee Shetty is a 76 year old F who presented to the emergency room after a syncopal episode while grocery shopping. She stated it happened fairly quickly. He however could tell that it was coming on and she did hit the back of her head on the floor when she fell. She is unsure how long she was unconscious but thinks it was a fairly short period of time. She was helped to stand to her feet and passed out for a second time. Patient states she has actually had syncopal episodes the past 4-5 years. She has not previously sought out medical attention. While in the hospital in the bathroom she experienced another episode of syncope, she could tell it coming on. Rapid response was called and at that time she was found she was noted to be bradycardic as well as hypotensive. She was given intravenous fluid boluses and has improved. Discontinued her propranolol and indapamide. Surgery was consulted and made a 30 day event monitor. She was discharged home in a stable condition with 30 day event monitor and to follow with Dr. Geiger as an outpatient. Physical exam at the time of discharge; vital signs were stable. He was alert and oriented to time place and person. He did not appear to be any form of distress. S1 and S2 heard no murmur or gallop Lung exam was clear to auscultation with no adventitious sounds. Abdomen was soft nontender with normal bowel sounds. extremity exam did not reveal any edema, palpable pulses bilaterally. Neurologic exam was grossly intact. Discharge Diet: No Restrictions Discharge Activity: Return to Normal Activity Home Medications: Medications to take at Discharge Ascorbic Acid [Vitamin C] 500 mg PO DAILY@0800 09/23/16 Aspirin [Aspirin, Baby] 81 mg PO QHS 09/23/16 Atorvastatin Calcium [Lipitor] 20 mg PO QHS 09/23/16 Calcium Carbonate [Tums Ultra Strength] 1,177 mg PO QHS 09/23/16 Cholecalciferol (Vitamin D3) [Vitamin D3] 1,000 unit PO QHS 09/23/16 Fluticasone 0.05% [Flonase Nasal [place]] 1 spray NASAL DAILY PRN PRN 09/23/16 Multivit-Min/Iron/Folic/Lutein [Centrum Silver Women Tablet] 1 each PO DAILY 09/23/16 [place]-3 Fatty Acids/Fish Oil [Fish Oil 1,000 mg Capsule] 1 each PO DAILY 09/23/16 Potassium Chloride [Klor-Con 8] 8 meq PO BID 09/23/16 Phenobarbital 32.4 mg PO BID 03/27/17 Other Amb Orders: Cardiac Holter Monitor/Day [[facility]] Time Frame: 30 Days, Location: None Selected Primary Care Physician: Rocío Geronimo MD [Primary Care Provider] - Within 2 Weeks Please Follow Up With: Rohan Geiger MD - 4 weeks Disposition: Home Patient Condition:: Good Meaningful Use Info Meaningful Use Diagnoses (Choose all that apply): None applicable Code Visit OBSV E&M: 21056 Observation care discharge
[2017-03-30 13:00] VITALS: BP 155/75; PULSE 70; RESP 18; TEMP 37; O2SAT 97
== END 2017-03-30 13:15 | disposition home or self-care (01) ==
LOC: ED 15:56 → PCU 16:18
PROVIDERS: Internal Medicine Cardiovascular Disease; Nurse Practitioner Family; Admitting Provider Internal Medicine; Emergency Provider Emergency Medicine; Family Provider Internal Medicine; PCP Internal Medicine; Visit Provider Internal Medicine
DX: R55 Syncope and collapse (principal); I10 Essential (primary) hypertension; E78.5 Hyperlipidemia, unspecified; E86.0 Dehydration; E87.6 Hypokalemia; I95.9 Hypotension, unspecified; I44.7 Left bundle-branch block, unspecified; R42 Dizziness and giddiness; Z85.3 Personal history of malignant neoplasm of breast; Z92.3 Personal history of irradiation; Z86.011 Personal history of benign neoplasm of the brain; Z79.899 Other long term (current) drug therapy; Z79.82 Long term (current) use of aspirin
CPT/HCPCS: 36415; 70450; 71046; 80048; 80053; 80061; 81001; 82962; 83735; 84443; 84484; 85025; 87804; 93005; 93306; 96361; 96372; 96374; 96376; 99218; 99285; J7030; J7040; A4216; G0378

== ENCOUNTER → 2018-04-04 15:17 | Outpatient (CLI) | payer MEDICARE, OTHER, SELFPAY ==
[2018-04-04 15:17] VITALS: BMI 23.9
[2018-04-04 16:35] LABS: Erythrocyte Sedimentation Rate 5 mm/hr (0-30)
[2018-04-04 16:54] LABS: Vitamin B12 1071 pg/mL (211-911)
[2018-04-04 17:02] LABS: ALB/GLOB Ratio 1.2 RATIO (0.9-2.4); AST(SGOT) 26 U/L (15-37); Alanine Aminotransfer ALT/SGPT 33 U/L (13-56); Albumin, Serum 4.5 g/dL (3.2-5.0); Alkaline Phosphatase 99 U/L (45-117); Anion Gap 12 (5-15); BUN 18 mg/dL (7-18); BUN/Creat Ratio 19.5 RATIO (10-20); CRP < 2.90 mg/L (0.0-3.0); Calcium,Total 9.6 mg/dL (8.5-10.1); Chloride 105 mmol/L (98-107); Creatinine, Serum 0.92 mg/dL (0.55-1.02); EST Glomerular Filtration Rate 63 mL/min (>60); Est Glom Filt Rate - Afr Amer 76 mL/min (>60); Globulin 3.6 g/dL (2.2-4.2); Glucose 93 mg/dL (74-106); Potassium 3.9 mmol/L (3.5-5.1); Protein, Total 8.1 g/dL (6.4-8.2); Sodium Level 142 mmol/L (136-145); Thyroid Stim Hormone (TSH) 1.58 uIU/mL (0.358-3.74)
== END ==
PROVIDERS: Referring Provider Psychiatry & Neurology Neurology; Visit Provider Psychiatry & Neurology Neurology
DX: R41.3 Other amnesia (principal)
CPT/HCPCS: 36415; 80053; 80184; 82607; 84443; 85652; 86140

== ENCOUNTER → 2018-04-07 12:44 | Outpatient (CLI) | payer MEDICARE, OTHER, SELFPAY ==
[2018-04-04 15:17] VITALS: BMI 23.9
--- NOTE | 2018-04-07 12:49 | CT_ITS ---
STUDY: CT BRAIN WITHOUT CONTRAST REASON FOR EXAM: Female, 77 years old. Memory loss. Post tumor follow-up. RADIATION DOSAGE (If Supplied By Facility): CTDIvol = ( 60.81 ) mGy, DLP = ( 1021.47 ) mGycm TECHNIQUE: Transaxial CT imaging of the brain was performed without administration of intravenous contrast material. Individualized dose optimization techniques were used for this CT. COMPARISON: Noncontrast CT brain March 27, 2017. FINDINGS: Changes of prior left frontotemporal craniotomy again noted. There is focal indentation/narrowing of the lateral left frontotemporal scalp along the craniotomy defect. There are atherosclerotic calcifications of the cavernous segments of the bilateral internal carotid arteries. Normal size ventricles and extra-axial spaces for the patient's age. There are stable extensive areas of decreased attenuation within the white matter tracts of the supratentorial brain, consistent with microvascular disease changes. Focal encephalomalacia suggested in the lateral left frontal lobe. Normal basal ganglia and thalami. Normal brainstem. Normal cerebellum. There is no intracranial hemorrhage. There are no findings of an acute ischemic infarction. Normal visualized paranasal sinuses. CT/Brain/Head without Contrast IMPRESSION: Stable unenhanced CT scan of the brain, as described. Electronically Signed: Cole Montaño MD at 18:56 EST , Service support ,
== END ==
PROVIDERS: Referring Provider Psychiatry & Neurology Neurology; Visit Provider Psychiatry & Neurology Neurology
DX: R41.3 Other amnesia (principal)
CPT/HCPCS: 70450

== ENCOUNTER 2019-09-05 08:56 | Day surgery (SDC) | payer MEDICARE, OTHER, SELFPAY ==
[2019-07-03 13:49] VITALS: BMI 22.4
[2019-09-05 09:22] VITALS: BP 156/69; PULSE 69; RESP 14; TEMP 36.8; O2SAT 100; BMI 20.4
[2019-09-05] MEDS: Lactated Ringers 1,000 ML 100 ML IV (09:38)
--- NOTE | 2019-09-05 10:11 | PCM.HP.STD ---
Problem List (1) Personal history of colonic polyps Status: Acute (2) Family history of malignant neoplasm of colon in mother Status: Acute History of Present Illness Date of Admission: 09/05/19 The patient is a 78 year old F who has a personal history of colon polyps and a family history of colon cancer in her mother. She otherwise is not symptomatic. She was scheduled 5 days ago but did not tolerate the bowel prep. She presents after retrying. Her most recent colonoscopy was May 14, 2014. She denies abdominal pain. She denies bright red blood per rectum or melena. She otherwise he states that her health is been steady Past Medical History Past Medical History (Chronic Problems): Chronic Problems (Last Reviewed 07/03/19 @ 13:39 by Anastasia Noguera) Essential (primary) hypertension (Chronic) HLD (hyperlipidemia) (Chronic) Medical History: Medical History (Last Reviewed 07/03/19 @ 13:39 by Anastasia Noguera) Change in bowel habits (Acute) R19.4 Family history of malignant neoplasm of colon in mother (Acute) Z80.0 Personal history of colonic polyps (Acute) Z86.010 Essential (primary) hypertension (Chronic) I10 HLD (hyperlipidemia) (Chronic) E78.5 Syncope (Resolved) Onset Date: 03/2017 R55 Allergies Sulfa (Sulfonamide Antibiotics) Allergy (Verified 08/21/19 10:48) Mucosal lesions meperidine [From Demerol] Adverse Reaction (Verified 08/21/19 10:48) Other metoprolol [From Toprol XL] Adverse Reaction (Verified 08/21/19 10:48) Unknown Home Medications: Ambulatory Orders Medication Instructions Recorded Atorvastatin Calcium [Lipitor] 20 mg PO QHS 09/23/16 Calcium Carbonate [Tums Ultra 1,177 mg PO QHS 09/23/16 Strength] Cholecalciferol (Vitamin D3) 1,000 unit PO QHS 09/23/16 [Vitamin D3] Multivit-Min/Iron/Folic/Lutein 1 ea PO DAILY 09/23/16 [Centrum Silver Women Tablet] acetaminophen 500 mg tablet 500 mg PO BID PRN tab 06/09/18 aspirin 81 mg tablet,delayed 81 mg PO DAILY 07/03/19 release meclizine 25 mg tablet 25 mg PO PRN PRN 07/03/19 Cyanocobalamin (Vitamin B-12) 1,000 mcg PO DAILY 08/21/19 [Vitamin B-12] Lisinopril [Prinivil] 5 mg PO BID 08/21/19 Memantine HCl 10 mg PO BID 08/21/19 Polyethylene Glycol 3350 [Miralax] 17 gm PO DAILY 08/21/19 Surgical History: Surgical History (Last Reviewed 07/03/19 @ 13:39 by Anastasia Noguera) History of lumpectomy of right breast Z98.890 History of tonsillectomy Z90.89 History of tubal ligation Z98.51 benign meningioma tumor resection Surgical History: tonsillectomy, - - Benign meningioma tumor resection, right breast lumpectomy Psychiatric History: 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 Smoking Status: Never smoker Tobacco Use: Non-smoker - *Family History Maternal Family History: Family History (Last Reviewed 07/03/19 @ 13:39 by Anastasia Noguera) Father pacemaker Mother Colon cancer Brother CVA (cerebral vascular accident) History Items: No pertinent history Paternal Family History: Family History (Last Reviewed 07/03/19 @ 13:39 by Anastasia Noguera) Father pacemaker Mother Colon cancer Brother CVA (cerebral vascular accident) History Items: No pertinent history Review of Systems Constitutional: Denies: Fever Cardiovascular: Denies: Chest Pain Respiratory: Denies: Cough Gastrointestinal: Denies: Abdominal Pain Endocrine: Denies: Change in Body Habitus VTE Information - Inpt Only VTE Present on Admission: No - Physical Exam Vitals/I&O's: Vital Signs Temp Pulse Resp BP Pulse Ox 98.3 F 69 14 156/69 H 100 09/05/19 09:22 09/05/19 09:22 09/05/19 09:22 09/05/19 09:22 09/05/19 09:22 Oxygen Delivery Method Room Air Weight: 108 lb 3.951 oz Body Mass Index (BMI) 20.4 General: Alert, No apparent distress, - - Mildly confused Oral: Moist Mucosa Lungs: Clear to auscultation Cardiovascular: Regular rate, Regular Rhythm Abdomen: Soft, Non Tender Extremities: No Calf Tenderness Psych/Mental Status: Normal Affect Current Medications Lactated Ringer's () 1,000 mls @ 100 mls/hr IV .Q10H ASHLYN Last Admin: 09/05/19 09:38 Dose: 100 mls/hr Documented by: Assessment/Plan All Active Problems (Last Reviewed 07/03/19 @ 13:39 by Anastasia Noguera) Change in bowel habits (Acute) Family history of malignant neoplasm of colon in mother (Acute) Personal history of colonic polyps (Acute) Syncope (Resolved 03/2017) I recommended the patient a colonoscopy with possible biopsy or polypectomy is indicated. She had a previous virtual appointment and this was reviewed with her. She does not have a good historical memory. She has been made aware of the technique, benefit, risk, alternatives. We will proceed as noted. Clemente Eli M.D., F.A.C.S.
[2019-09-05 10:45] VITALS: BP 124/64; BP 156/69; PULSE 67; RESP 14; TEMP 36.4; O2SAT 100
--- NOTE | 2019-09-05 10:47 | OP.CCLET_ITS ---
09/05/2019 Zane Marsh [address] [place] [address] Re : Colonoscopy procedure for Kanwal Shetty Dear Dr. Marsh This procedure was performed on Thursday, September 05, 2019. My impressions and recommendations are as follows: Impressions : - Hemorrhoids found on perianal exam. - Diverticulosis in the sigmoid colon and in the descending colon. - Tortuous colon. - The examination was otherwise normal. - No specimens collected. Recommendations : - Discharge patient to home. - Resume previous diet. - Continue present medications. - Repeat colonoscopy is not recommended due to current age (66 years or older) for screening purposes. My findings are described in the full procedure note, which is enclosed. If I can be of further assistance, please feel free to contact me at Doctor phone number(s): Work: . Sincerely, Clemente Eli MD 09/05/2019 10:47:05 AM This report has been signed electronically.
--- NOTE | 2019-09-05 10:47 | OP.COLON_ITS ---
Patient Name: Kanwal Shetty Procedure Date: 09/05/2019 10:17 AM Date of : 1940 Age: 78 Procedure: Colonoscopy Indications: High risk colon cancer surveillance: Personal history of colonic polyps, Family history of colon cancer in a first-degree relative Providers: Clemente Eli MD Medicines: See the Anesthesia note for documentation of the administered medications Patient Profile: Last Colonoscopy: April 2014. Complications: No immediate complications. Procedure: Pre-Anesthesia Assessment: - Prior to the procedure, a History and Physical was performed, and patient medications and allergies were reviewed. The patient's tolerance of previous anesthesia was also reviewed. The risks and benefits of the procedure and the sedation options and risks were discussed with the patient. All questions were answered, and informed consent was obtained. Prior Anticoagulants: The patient has taken no previous anticoagulant or antiplatelet agents. ASA Grade Assessment: II - A patient with mild systemic disease. After reviewing the risks and benefits, the patient was deemed in satisfactory condition to undergo the procedure. After I obtained informed consent, the scope was passed under direct vision. Throughout the procedure, the patient's blood pressure, pulse, and oxygen saturations were monitored continuously. The Colonoscope was introduced through the anus and advanced to the cecum, identified by appendiceal orifice and ileocecal valve. The colonoscopy was performed with moderate difficulty due to a tortuous colon. Successful completion of the procedure was aided by changing the patient to a supine position and using manual pressure. The patient tolerated the procedure well. The quality of the bowel preparation was good. The ileocecal valve was photographed. Scope In: 10:22:36 AM Scope Withdrawal Time 0 hours 8 minutes 13 seconds Scope Out: 10:40:46 AM Total Procedure Duration Time 0 hours 18 minutes 10 seconds Findings: Hemorrhoids were found on perianal exam. Multiple diverticula were found in the sigmoid colon and descending colon. The colon (entire examined portion) was moderately tortuous. The exam was otherwise without abnormality. Impression: - Hemorrhoids found on perianal exam. - Diverticulosis in the sigmoid colon and in the descending colon. - Tortuous colon. - The examination was otherwise normal. - No specimens collected. Recommendation: - Discharge patient to home. - Resume previous diet. - Continue present medications. - Repeat colonoscopy is not recommended due to current age (66 years or older) for screening purposes. Procedure Code(s): --- Professional --- 03219, Colonoscopy, flexible; diagnostic, including collection of specimen(s) by brushing or washing, when performed (separate procedure) Diagnosis Code(s): --- Professional --- Z86.010, Personal history of colonic polyps K64.9, Unspecified hemorrhoids Z80.0, Family history of malignant neoplasm of digestive organs K57.30, Diverticulosis of large intestine without perforation or abscess without bleeding Q43.8, Other specified congenital malformations of intestine CPT copyright 2017 [employer]. All rights reserved. The codes documented in this report are preliminary and upon watch dial stoner review may be revised to meet current compliance requirements. Clemente Eli MD 09/05/2019 10:47:05 AM This report has been signed electronically. Number of Addenda: 0 Note Initiated On: 09/05/2019 10:17 AM
[2019-09-05 10:50] VITALS: BP 122/77; BP 156/69; PULSE 79; RESP 14; O2SAT 100
[2019-09-05 10:55] VITALS: BP 141/69; BP 156/69; PULSE 78; RESP 14; O2SAT 100
[2019-09-05 10:59] VITALS: BP 139/69; BP 156/69; PULSE 71; RESP 14; TEMP 36.4; O2SAT 100
[2019-09-05 11:25] VITALS: BP 156/69
== END 2019-09-05 11:33 | disposition home or self-care (01) ==
LOC: EN 08:59 → AC 09:01
PROVIDERS: Anesthesiology; PCP Family Medicine; Referring Provider Family Medicine; Visit Provider Surgery
PROC: 0DJD8ZZ Inspection of Lower Intestinal Tract, Via Natural or Artificial Opening Endoscopic (ICD-10-PCS; CPT 45378; principal; 2019-09-05 09:55)
DX: Z12.11 Encounter for screening for malignant neoplasm of colon (principal); Z11.59 Encounter for screening for other viral diseases; K57.30 Diverticulosis of large intestine without perforation or abscess without bleeding; K64.9 Unspecified hemorrhoids; Q43.8 Other specified congenital malformations of intestine; I10 Essential (primary) hypertension; E78.5 Hyperlipidemia, unspecified; Z79.82 Long term (current) use of aspirin; Z79.899 Other long term (current) drug therapy; Z86.010 Personal history of colon polyps; Z83.71 Family history of colonic polyps; Z80.0 Family history of malignant neoplasm of digestive organs
CPT/HCPCS: G0105; 87635; G2023; J7120; J2405; U0003

== ENCOUNTER → 2019-10-21 11:27 | Outpatient (CLI) | payer MEDICARE, OTHER, SELFPAY ==
[2019-10-21 13:09] LABS: AST(SGOT) 18 U/L (15-37); Alanine Aminotransfer ALT/SGPT 16 U/L (13-56); Albumin, Serum 4.2 g/dL (3.2-5.0); Alkaline Phosphatase 87 U/L (45-117); Anion Gap 5 (5-15); BUN 20 mg/dL (7-18); Bilirubin, Direct 0.21 mg/dL (0.00-0.30); Calcium,Total 9.1 mg/dL (8.5-10.1); Chloride 108 mmol/L (98-107); Cholesterol 183 mg/dL (200); Creatinine, Serum 0.91 mg/dL (0.55-1.02); EST Glomerular Filtration Rate 63 mL/min (>60); Est Glom Filt Rate - Afr Amer 77 mL/min (>60); Globulin 3.3 g/dL (2.2-4.2); Glucose 89 mg/dL (74-106); High Density Lipoprotein 61 mg/dL; Protein, Total 7.5 g/dL (6.4-8.2); Sodium Level 141 mmol/L (136-145); Triglycerides 106 mg/dL; Very Low Density Lipoprotein 21 mg/dL (5-40)
== END ==
PROVIDERS: PCP Family Medicine; Referring Provider Internal Medicine Cardiovascular Disease; Visit Provider Internal Medicine Cardiovascular Disease
DX: E78.5 Hyperlipidemia, unspecified (principal); I10 Essential (primary) hypertension
CPT/HCPCS: 36415; 80048; 80061; 80076

== ENCOUNTER → 2020-09-23 04:00 | Outpatient (REF) | payer MEDICARE, OTHER, SELFPAY ==
[2020-09-23 07:59] LABS: Hemoglobin 12.5 g/dL (12.0-15.0); Mean Corp Hgb Conc 31.3 g/dL (32-36); Mean Corpuscular Hgb 28.4 pg (27.0-32.0); Mean Corpuscular Volume 90.9 fL (81-99); Mean Platelet Vol. 9.6 fl (6.2-12.0); Platelet Count 202 K/mm3 (150-450); RBC Distribution Width CV 13.3 % (11.6-14.6); RBC Distribution Width SD 44.8 fl (35.1-43.9); White Blood Count 5.6 K/mm3 (4.4-11.0)
[2020-09-23 08:21] LABS: ALB/GLOB Ratio 1.2 RATIO (0.9-2.4); AST(SGOT) 24 U/L (15-37); Alanine Aminotransfer ALT/SGPT 34 U/L (13-56); Albumin, Serum 3.6 g/dL (3.2-5.0); Alkaline Phosphatase 72 U/L (45-117); Anion Gap 5 (5-15); BUN 19 mg/dL (7-18); Calcium,Total 8.4 mg/dL (8.5-10.1); Chloride 107 mmol/L (98-107); Cholesterol 158 mg/dL (200); EST Glomerular Filtration Rate 85 mL/min (>60); Est Glom Filt Rate - Afr Amer 103 mL/min (>60); Globulin 3.1 g/dL (2.2-4.2); Glucose 80 mg/dL (74-106); High Density Lipoprotein 66 mg/dL; Potassium 3.5 mmol/L (3.5-5.1); Protein, Total 6.7 g/dL (6.4-8.2); Sodium Level 142 mmol/L (136-145); Triglycerides 81 mg/dL; Very Low Density Lipoprotein 16 mg/dL (5-40)
== END ==
LOC: OLS.BROOKB 04:00
PROVIDERS: PCP Family Medicine; Referring Provider Family Medicine; Visit Provider Family Medicine
DX: F03.90 Unspecified dementia, unspecified severity, without behavioral disturbance, psychotic disturbance, mood disturbance, and anxiety (principal); I10 Essential (primary) hypertension; E78.5 Hyperlipidemia, unspecified
CPT/HCPCS: 36415; 80053; 80061; 85027

== ENCOUNTER → 2021-01-14 05:00 | Outpatient (REF) | payer MEDICARE, OTHER, SELFPAY ==
[2021-01-14 10:00] LABS: AST(SGOT) 20 U/L (15-37); Alanine Aminotransfer ALT/SGPT 26 U/L (13-56); Albumin, Serum 3.7 g/dL (3.2-5.0); Alkaline Phosphatase 83 U/L (45-117); Anion Gap 5 (5-15); BUN 23 mg/dL (7-18); BUN/Creat Ratio 26.3 RATIO (10-20); Bilirubin, Direct 0.16 mg/dL (0.00-0.30); Calcium,Total 9.1 mg/dL (8.5-10.1); Chloride 106 mmol/L (98-107); Creatinine, Serum 0.88 mg/dL (0.55-1.02); EST Glomerular Filtration Rate 66 mL/min (>60); Est Glom Filt Rate - Afr Amer 80 mL/min (>60); Globulin 3.8 g/dL (2.2-4.2); Glucose 114 mg/dL (74-106); Potassium 3.8 mmol/L (3.5-5.1); Protein, Total 7.5 g/dL (6.4-8.2); Sodium Level 141 mmol/L (136-145)
[2021-01-14 10:37] LABS: Valproic Acid (Depakene) Level 48 ug/mL (50-100)
== END ==
LOC: OLS.WHLCAR 05:00
PROVIDERS: PCP Family Medicine; Visit Provider Family Medicine
DX: F03.90 Unspecified dementia, unspecified severity, without behavioral disturbance, psychotic disturbance, mood disturbance, and anxiety (principal); D32.9 Benign neoplasm of meninges, unspecified; R48.8 Other symbolic dysfunctions; M62.81 Muscle weakness (generalized); R26.2 Difficulty in walking, not elsewhere classified; Z79.899 Other long term (current) drug therapy
CPT/HCPCS: 36415; 80053; 80164; 82248

== ENCOUNTER 2021-01-20 12:37 | Outpatient (RCR) | payer MEDICARE, OTHER, SELFPAY | END 2021-01-21 23:59 | LOC: LABSPEC 12:37 | PROVIDERS: PCP Family Medicine; Visit Provider Family Medicine | DX: Z03.818 Encounter for observation for suspected exposure to other biological agents ruled out (principal) | CPT/HCPCS: 87635; U0005; U0003 ==

== ENCOUNTER → 2021-04-14 | Outpatient (REF) | payer MEDICARE, OTHER, SELFPAY ==
[2021-04-14 08:42] LABS: Valproic Acid (Depakene) Level 18 ug/mL (50-100)
[2021-04-14 08:45] LABS: ALB/GLOB Ratio 1.1 RATIO (0.9-2.4); AST(SGOT) 21 U/L (15-37); Alanine Aminotransfer ALT/SGPT 27 U/L (13-56); Albumin, Serum 3.4 g/dL (3.2-5.0); Alkaline Phosphatase 71 U/L (45-117); Anion Gap 5 (5-15); BUN 21 mg/dL (7-18); BUN/Creat Ratio 28.3 RATIO (10-20); Bilirubin, Direct 0.08 mg/dL (0.00-0.30); Calcium,Total 8.9 mg/dL (8.5-10.1); Chloride 107 mmol/L (98-107); Creatinine, Serum 0.74 mg/dL (0.55-1.02); EST Glomerular Filtration Rate 80 mL/min (>60); Est Glom Filt Rate - Afr Amer 97 mL/min (>60); Globulin 3.2 g/dL (2.2-4.2); Glucose 80 mg/dL (74-106); Potassium 3.9 mmol/L (3.5-5.1); Protein, Total 6.6 g/dL (6.4-8.2); Sodium Level 141 mmol/L (136-145)
== END | disposition home or self-care (01) ==
LOC: OLS.WHLTSB 04:00
PROVIDERS: PCP Family Medicine; Visit Provider Family Medicine
DX: F03.90 Unspecified dementia, unspecified severity, without behavioral disturbance, psychotic disturbance, mood disturbance, and anxiety (principal); D32.9 Benign neoplasm of meninges, unspecified; R48.8 Other symbolic dysfunctions; M62.81 Muscle weakness (generalized); R26.2 Difficulty in walking, not elsewhere classified
CPT/HCPCS: 36415; 80053; 80164; 82248

== ENCOUNTER → 2021-05-05 | Outpatient (REF) | payer MEDICARE, MEDICAID, SELFPAY ==
[2021-05-05 08:39] LABS: Absolute Neutrophil Count 3.9 X10^3/uL (2.0-7.7); Basophil# 0.06 X10^3/uL; Basophil% 0.9 % (0-1); Eosinophil# 0.08 X10^3/uL; Eosinophils% 1.1 % (0-5); Hematocrit 41.8 % (37-47); Hemoglobin 13.6 g/dL (12.0-15.0); Lymphocyte % 35.5 % (19-41); Mean Corp Hgb Conc 32.5 g/dL (32-36); Mean Corpuscular Hgb 29.5 pg (27.0-32.0); Mean Corpuscular Volume 90.7 fL (81-99); Mean Platelet Vol. 10.4 fl (6.2-12.0); Monocyte# 0.47 X10^3/uL; Monocyte% 6.7 % (0-10); NRBC Flagged by Analyzer 0 % (0-5); Neutrophil # 3.92 X10^3/uL (2.7-7.7); Neutrophil % 55.5 % (47-70); Platelet Count 242 K/mm3 (150-450); RBC Distribution Width CV 12.8 % (11.6-14.6); RBC Distribution Width SD 41.7 fl (35.1-43.9); Red Blood Count 4.61 M/mm3 (4.2-5.4); White Blood Count 7.1 K/mm3 (4.4-11.0)
[2021-05-05 09:07] LABS: ALB/GLOB Ratio 1.1 RATIO (0.9-2.4); AST(SGOT) 24 U/L (15-37); Alanine Aminotransfer ALT/SGPT 31 U/L (13-56); Albumin, Serum 3.9 g/dL (3.2-5.0); Alkaline Phosphatase 82 U/L (45-117); Anion Gap 4 (5-15); BUN 17 mg/dL (7-18); BUN/Creat Ratio 21.5 RATIO (10-20); Calcium,Total 9.2 mg/dL (8.5-10.1); Chloride 104 mmol/L (98-107); Cholesterol 160 mg/dL (200); Creatinine, Serum 0.79 mg/dL (0.55-1.02); EST Glomerular Filtration Rate 74 mL/min (>60); Est Glom Filt Rate - Afr Amer 90 mL/min (>60); Globulin 3.5 g/dL (2.2-4.2); Glucose 93 mg/dL (74-106); High Density Lipoprotein 56 mg/dL; Potassium 3.6 mmol/L (3.5-5.1); Protein, Total 7.4 g/dL (6.4-8.2); Sodium Level 139 mmol/L (136-145); Triglycerides 106 mg/dL; Very Low Density Lipoprotein 21 mg/dL (5-40)
== END | disposition home or self-care (01) ==
LOC: OLS.WHLCAR 05:00
PROVIDERS: PCP Family Medicine; Visit Provider Family Medicine
DX: I10 Essential (primary) hypertension (principal)
CPT/HCPCS: 36415; 80053; 80061; 85025

== ENCOUNTER → 2021-07-11 | Outpatient (REF) | payer MEDICARE, MEDICAID, SELFPAY ==
[2021-07-11 09:28] LABS: Valproic Acid (Depakene) Level 13 ug/mL (50-100)
[2021-07-11 09:33] LABS: ALB/GLOB Ratio 1.1 RATIO (0.9-2.4); AST(SGOT) 21 U/L (15-37); Alanine Aminotransfer ALT/SGPT 26 U/L (13-56); Albumin, Serum 3.4 g/dL (3.2-5.0); Alkaline Phosphatase 70 U/L (45-117); Anion Gap 5 (5-15); BUN 19 mg/dL (7-18); BUN/Creat Ratio 24.2 RATIO (10-20); Chloride 109 mmol/L (98-107); Creatinine, Serum 0.78 mg/dL (0.55-1.02); EST Glomerular Filtration Rate 75 mL/min (>60); Est Glom Filt Rate - Afr Amer 91 mL/min (>60); Globulin 3.1 g/dL (2.2-4.2); Glucose 89 mg/dL (74-106); Potassium 3.9 mmol/L (3.5-5.1); Protein, Total 6.5 g/dL (6.4-8.2); Sodium Level 143 mmol/L (136-145)
== END | disposition home or self-care (01) ==
LOC: OLS.WHLCAR 05:00
PROVIDERS: PCP Family Medicine; Visit Provider Family Medicine
DX: D32.9 Benign neoplasm of meninges, unspecified (principal); F03.90 Unspecified dementia, unspecified severity, without behavioral disturbance, psychotic disturbance, mood disturbance, and anxiety; R48.8 Other symbolic dysfunctions; M62.81 Muscle weakness (generalized); R26.2 Difficulty in walking, not elsewhere classified
CPT/HCPCS: 36415; 80053; 80164; 82248

== ENCOUNTER → 2021-07-14 | Outpatient (REF) | payer MEDICARE, MEDICAID, SELFPAY ==
[2021-07-14 09:54] LABS: Valproic Acid (Depakene) Level 4 ug/mL (50-100)
[2021-07-14 09:56] LABS: ALB/GLOB Ratio 1.1 RATIO (0.9-2.4); AST(SGOT) 20 U/L (15-37); Alanine Aminotransfer ALT/SGPT 29 U/L (13-56); Albumin, Serum 3.9 g/dL (3.2-5.0); Alkaline Phosphatase 79 U/L (45-117); Anion Gap 6 (5-15); BUN 23 mg/dL (7-18); Bilirubin, Direct 0.12 mg/dL (0.00-0.30); Calcium,Total 9.1 mg/dL (8.5-10.1); Chloride 107 mmol/L (98-107); Creatinine, Serum 0.85 mg/dL (0.55-1.02); EST Glomerular Filtration Rate 68 mL/min (>60); Est Glom Filt Rate - Afr Amer 83 mL/min (>60); Globulin 3.4 g/dL (2.2-4.2); Glucose 90 mg/dL (74-106); Potassium 3.6 mmol/L (3.5-5.1); Protein, Total 7.3 g/dL (6.4-8.2); Sodium Level 142 mmol/L (136-145)
== END | disposition home or self-care (01) ==
LOC: OLS.WHLCAR 05:00
PROVIDERS: PCP Family Medicine; Referring Provider Family Medicine; Visit Provider Family Medicine
DX: I10 Essential (primary) hypertension (principal); F02.81 Dementia in other diseases classified elsewhere, unspecified severity, with behavioral disturbance; C18.9 Malignant neoplasm of colon, unspecified; C50.919 Malignant neoplasm of unspecified site of unspecified female breast
CPT/HCPCS: 36415; 80053; 80164; 82248

== ENCOUNTER → 2021-09-30 | Outpatient (REF) | payer MEDICARE, MEDICAID, SELFPAY ==
[2021-09-30 09:02] LABS: Absolute Lymphocyte Count 2.03 X10^3/uL (0.83-4.51); Absolute Neutrophil Count 3.4 X10^3/uL (2.0-7.7); Basophil# 0.03 X10^3/uL; Basophil% 0.5 % (0-1); Eosinophil# 0.04 X10^3/uL; Eosinophils% 0.7 % (0-5); Hematocrit 36.9 % (37-47); Hemoglobin 12.4 g/dL (12.0-15.0); Lymphocyte # 2.03 X10^3/ul (0.83-4.51); Lymphocyte % 33.9 % (19-41); Mean Corp Hgb Conc 33.6 g/dL (32-36); Mean Corpuscular Volume 89.1 fL (81-99); Mean Platelet Vol. 10.1 fl (6.2-12.0); Monocyte% 8.4 % (0-10); NRBC Flagged by Analyzer 0 % (0-5); Neutrophil # 3.36 X10^3/uL (2.7-7.7); Neutrophil % 56.2 % (47-70); Platelet Count 202 K/mm3 (150-450); RBC Distribution Width CV 13.1 % (11.6-14.6); RBC Distribution Width SD 42.5 fl (35.1-43.9); Red Blood Count 4.14 M/mm3 (4.2-5.4)
[2021-09-30 09:39] LABS: Anion Gap 6 (5-15); BUN 29 mg/dL (7-18); BUN/Creat Ratio 42.5 RATIO (10-20); Calcium,Total 9.2 mg/dL (8.5-10.1); Chloride 111 mmol/L (98-107); Creatinine, Serum 0.68 mg/dL (0.55-1.02); EST Glomerular Filtration Rate 88 mL/min (>60); Est Glom Filt Rate - Afr Amer 106 mL/min (>60); Glucose 79 mg/dL (74-106); Potassium 3.4 mmol/L (3.5-5.1); Sodium Level 144 mmol/L (136-145); Thyroid Stim Hormone (TSH) 0.79 uIU/mL (0.358-3.74)
== END ==
LOC: OLS.WHLCAR 04:00
PROVIDERS: PCP Family Medicine; Visit Provider Family Medicine
DX: F32.89 Other specified depressive episodes (principal); F02.81 Dementia in other diseases classified elsewhere, unspecified severity, with behavioral disturbance; D32.9 Benign neoplasm of meninges, unspecified; C50.919 Malignant neoplasm of unspecified site of unspecified female breast; C18.9 Malignant neoplasm of colon, unspecified
CPT/HCPCS: 36415; 80048; 84443; 85025

== ENCOUNTER → 2021-10-10 | Outpatient (REF) | payer MEDICARE, MEDICAID, SELFPAY ==
[2021-10-10 08:37] LABS: Valproic Acid (Depakene) Level 13 ug/mL (50-100)
[2021-10-10 08:41] LABS: ALB/GLOB Ratio 1.1 RATIO (0.9-2.4); AST(SGOT) 22 U/L (15-37); Alanine Aminotransfer ALT/SGPT 30 U/L (13-56); Albumin, Serum 3.4 g/dL (3.2-5.0); Alkaline Phosphatase 65 U/L (45-117); Anion Gap 6 (5-15); BUN 19 mg/dL (7-18); BUN/Creat Ratio 25.8 RATIO (10-20); Bilirubin, Direct 0.11 mg/dL (0.00-0.30); Calcium,Total 8.7 mg/dL (8.5-10.1); Chloride 108 mmol/L (98-107); Creatinine, Serum 0.74 mg/dL (0.55-1.02); EST Glomerular Filtration Rate 80 mL/min (>60); Est Glom Filt Rate - Afr Amer 97 mL/min (>60); Globulin 3.2 g/dL (2.2-4.2); Glucose 86 mg/dL (74-106); Potassium 3.8 mmol/L (3.5-5.1); Protein, Total 6.6 g/dL (6.4-8.2); Sodium Level 141 mmol/L (136-145)
== END ==
LOC: OLS.WHLCAR 05:00
PROVIDERS: PCP Family Medicine; Visit Provider Family Medicine
DX: I10 Essential (primary) hypertension (principal); F02.81 Dementia in other diseases classified elsewhere, unspecified severity, with behavioral disturbance; D32.9 Benign neoplasm of meninges, unspecified; C50.919 Malignant neoplasm of unspecified site of unspecified female breast; C16.9 Malignant neoplasm of stomach, unspecified
CPT/HCPCS: 36415; 80053; 80164; 82248

== ENCOUNTER → 2021-11-03 | Outpatient (REF) | payer MEDICARE, MEDICAID, SELFPAY ==
[2021-11-03 09:15] LABS: Absolute Lymphocyte Count 1.48 X10^3/uL (0.83-4.51); Absolute Neutrophil Count 2.8 X10^3/uL (2.0-7.7); Basophil# 0.03 X10^3/uL; Basophil% 0.6 % (0-1); Eosinophil# 0.04 X10^3/uL; Eosinophils% 0.8 % (0-5); Hematocrit 38.2 % (37-47); Hemoglobin 12.3 g/dL (12.0-15.0); Lymphocyte # 1.48 X10^3/ul (0.83-4.51); Lymphocyte % 31.4 % (19-41); Mean Corp Hgb Conc 32.2 g/dL (32-36); Mean Corpuscular Hgb 28.8 pg (27.0-32.0); Mean Corpuscular Volume 89.5 fL (81-99); Mean Platelet Vol. 10.1 fl (6.2-12.0); Monocyte# 0.37 X10^3/uL; Monocyte% 7.8 % (0-10); NRBC Flagged by Analyzer 0 % (0-5); Neutrophil # 2.78 X10^3/uL (2.7-7.7); Platelet Count 221 K/mm3 (150-450); RBC Distribution Width CV 13.2 % (11.6-14.6); RBC Distribution Width SD 43.2 fl (35.1-43.9); Red Blood Count 4.27 M/mm3 (4.2-5.4); White Blood Count 4.7 K/mm3 (4.4-11.0)
[2021-11-03 09:25] LABS: AST(SGOT) 17 U/L (15-37); Alanine Aminotransfer ALT/SGPT 23 U/L (13-56); Albumin, Serum 3.3 g/dL (3.2-5.0); Alkaline Phosphatase 67 U/L (45-117); Anion Gap 7 (5-15); BUN 28 mg/dL (7-18); Chloride 109 mmol/L (98-107); Cholesterol 217 mg/dL (200); Creatinine, Serum 0.76 mg/dL (0.55-1.02); EST Glomerular Filtration Rate 78 mL/min (>60); Est Glom Filt Rate - Afr Amer 94 mL/min (>60); Globulin 3.3 g/dL (2.2-4.2); Glucose 81 mg/dL (74-106); High Density Lipoprotein 47 mg/dL; Potassium 3.8 mmol/L (3.5-5.1); Protein, Total 6.6 g/dL (6.4-8.2); Sodium Level 143 mmol/L (136-145); Triglycerides 146 mg/dL; Very Low Density Lipoprotein 29 mg/dL (5-40)
== END ==
LOC: OLS.WHLCAR 04:00
PROVIDERS: PCP Family Medicine; Referring Provider Family Medicine; Visit Provider Family Medicine
DX: I10 Essential (primary) hypertension (principal)
CPT/HCPCS: 36415; 80053; 80061; 85025

== ENCOUNTER → 2022-01-02 | Outpatient (REF) | payer MEDICARE, MEDICAID, SELFPAY ==
[2022-01-02 07:59] LABS: Valproic Acid (Depakene) Level 7 ug/mL (50-100)
[2022-01-02 08:31] LABS: AST(SGOT) 18 U/L (15-37); Alanine Aminotransfer ALT/SGPT 27 U/L (13-56); Albumin, Serum 3.2 g/dL (3.2-5.0); Alkaline Phosphatase 72 U/L (45-117); Anion Gap 6 (5-15); BUN 26 mg/dL (7-18); BUN/Creat Ratio 33.2 RATIO (10-20); Bilirubin, Direct 0.08 mg/dL (0.00-0.30); Calcium,Total 9.1 mg/dL (8.5-10.1); Chloride 109 mmol/L (98-107); Creatinine, Serum 0.78 mg/dL (0.55-1.02); EST Glomerular Filtration Rate 75 mL/min (>60); Est Glom Filt Rate - Afr Amer 91 mL/min (>60); Globulin 3.2 g/dL (2.2-4.2); Glucose 82 mg/dL (74-106); Potassium 3.9 mmol/L (3.5-5.1); Protein, Total 6.4 g/dL (6.4-8.2); Sodium Level 143 mmol/L (136-145)
== END ==
LOC: OLS.WHLCAR 05:00
PROVIDERS: PCP Family Medicine; Visit Provider Family Medicine
DX: I10 Essential (primary) hypertension (principal); D32.9 Benign neoplasm of meninges, unspecified; C50.919 Malignant neoplasm of unspecified site of unspecified female breast; C18.9 Malignant neoplasm of colon, unspecified; Z79.899 Other long term (current) drug therapy; F03.918 Unspecified dementia, unspecified severity, with other behavioral disturbance
CPT/HCPCS: 36415; 80053; 80164; 82248

== ENCOUNTER → 2022-01-20 | Outpatient (REF) | payer MEDICARE, MEDICAID, SELFPAY ==
[2022-01-20 08:37] LABS: Absolute Neutrophil Count 3.7 X10^3/uL (2.0-7.7); Basophil# 0.02 X10^3/uL; Basophil% 0.3 % (0-1); Eosinophil# 0.03 X10^3/uL; Eosinophils% 0.5 % (0-5); Hematocrit 37.7 % (37-47); Hemoglobin 11.9 g/dL (12.0-15.0); Mean Corp Hgb Conc 31.6 g/dL (32-36); Mean Corpuscular Hgb 28.2 pg (27.0-32.0); Mean Corpuscular Volume 89.3 fL (81-99); Mean Platelet Vol. 10.4 fl (6.2-12.0); Monocyte# 0.45 X10^3/uL; Monocyte% 7.2 % (0-10); NRBC Flagged by Analyzer 0 % (0-5); Neutrophil # 3.72 X10^3/uL (2.7-7.7); Neutrophil % 59.5 % (47-70); Platelet Count 202 K/mm3 (150-450); RBC Distribution Width CV 12.8 % (11.6-14.6); RBC Distribution Width SD 41.3 fl (35.1-43.9); Red Blood Count 4.22 M/mm3 (4.2-5.4); White Blood Count 6.3 K/mm3 (4.4-11.0)
[2022-01-20 08:49] LABS: ALB/GLOB Ratio 1.1 RATIO (0.9-2.4); AST(SGOT) 22 U/L (15-37); Alanine Aminotransfer ALT/SGPT 44 U/L (13-56); Albumin, Serum 3.2 g/dL (3.2-5.0); Alkaline Phosphatase 69 U/L (45-117); Anion Gap 9 (5-15); BUN 26 mg/dL (7-18); BUN/Creat Ratio 35.3 RATIO (10-20); Calcium,Total 8.8 mg/dL (8.5-10.1); Chloride 107 mmol/L (98-107); Creatinine, Serum 0.74 mg/dL (0.55-1.02); EST Glomerular Filtration Rate 80 mL/min (>60); Est Glom Filt Rate - Afr Amer 97 mL/min (>60); Globulin 2.9 g/dL (2.2-4.2); Glucose 84 mg/dL (74-106); Potassium 3.6 mmol/L (3.5-5.1); Protein, Total 6.1 g/dL (6.4-8.2); Sodium Level 142 mmol/L (136-145)
== END ==
LOC: OLS.WHLCAR 05:00
PROVIDERS: PCP Family Medicine; Visit Provider Internal Medicine
DX: R48.8 Other symbolic dysfunctions (principal); D32.0 Benign neoplasm of cerebral meninges; C50.919 Malignant neoplasm of unspecified site of unspecified female breast; F02.818 Dementia in other diseases classified elsewhere, unspecified severity, with other behavioral disturbance
CPT/HCPCS: 36415; 80053; 85025

== ENCOUNTER → 2022-03-27 | Outpatient (REF) | payer MEDICARE, MEDICAID, SELFPAY ==
[2022-03-27 09:25] LABS: AST(SGOT) 17 U/L (15-37); Alanine Aminotransfer ALT/SGPT 18 U/L (13-56); Albumin, Serum 3.1 g/dL (3.2-5.0); Alkaline Phosphatase 75 U/L (45-117); Anion Gap 7 (5-15); BUN 27 mg/dL (7-18); BUN/Creat Ratio 40.5 RATIO (10-20); Calcium,Total 8.6 mg/dL (8.5-10.1); Chloride 109 mmol/L (98-107); Creatinine, Serum 0.67 mg/dL (0.55-1.02); EST Glomerular Filtration Rate 90 mL/min (>60); Est Glom Filt Rate - Afr Amer 109 mL/min (>60); Globulin 3.2 g/dL (2.2-4.2); Glucose 89 mg/dL (74-106); Potassium 3.9 mmol/L (3.5-5.1); Protein, Total 6.3 g/dL (6.4-8.2); Sodium Level 142 mmol/L (136-145)
[2022-03-27 09:30] LABS: Valproic Acid (Depakene) Level 13 ug/mL (50-100)
== END ==
LOC: OLS.WHLCAR 05:00
PROVIDERS: PCP Family Medicine; Visit Provider Internal Medicine
DX: I10 Essential (primary) hypertension (principal); F02.818 Dementia in other diseases classified elsewhere, unspecified severity, with other behavioral disturbance; D32.9 Benign neoplasm of meninges, unspecified; C50.919 Malignant neoplasm of unspecified site of unspecified female breast; C18.9 Malignant neoplasm of colon, unspecified
CPT/HCPCS: 36415; 80053; 80164; 82248

== ENCOUNTER → 2022-04-23 | Outpatient (REF) | payer MEDICARE, MEDICAID, SELFPAY ==
[2022-04-23 08:19] LABS: Absolute Lymphocyte Count 1.29 X10^3/uL (0.83-4.51); Absolute Neutrophil Count 5.9 X10^3/uL (2.0-7.7); Basophil# 0.03 X10^3/uL; Basophil% 0.4 % (0-1); Hematocrit 36.9 % (37-47); Hemoglobin 12.1 g/dL (12.0-15.0); Lymphocyte # 1.29 X10^3/ul (0.83-4.51); Mean Corp Hgb Conc 32.8 g/dL (32-36); Mean Corpuscular Hgb 28.9 pg (27.0-32.0); Mean Corpuscular Volume 88.1 fL (81-99); Mean Platelet Vol. 9.9 fl (6.2-12.0); Monocyte# 0.77 X10^3/uL; Monocyte% 9.6 % (0-10); NRBC Flagged by Analyzer 0 % (0-5); Neutrophil # 5.92 X10^3/uL (2.7-7.7); Neutrophil % 73.5 % (47-70); Platelet Count 221 K/mm3 (150-450); RBC Distribution Width CV 12.6 % (11.6-14.6); RBC Distribution Width SD 40.7 fl (35.1-43.9); Red Blood Count 4.19 M/mm3 (4.2-5.4); White Blood Count 8.1 K/mm3 (4.4-11.0)
[2022-04-23 08:29] LABS: AST(SGOT) 18 U/L (15-37); Alanine Aminotransfer ALT/SGPT 20 U/L (13-56); Albumin, Serum 3.4 g/dL (3.2-5.0); Alkaline Phosphatase 85 U/L (45-117); Anion Gap 8 (5-15); BUN 18 mg/dL (7-18); BUN/Creat Ratio 24.9 RATIO (10-20); Calcium,Total 8.8 mg/dL (8.5-10.1); Chloride 106 mmol/L (98-107); Creatinine, Serum 0.72 mg/dL (0.55-1.02); EST Glomerular Filtration Rate 82 mL/min (>60); Est Glom Filt Rate - Afr Amer 99 mL/min (>60); Globulin 3.3 g/dL (2.2-4.2); Glucose 108 mg/dL (74-106); Potassium 3.9 mmol/L (3.5-5.1); Protein, Total 6.7 g/dL (6.4-8.2); Sodium Level 139 mmol/L (136-145)
== END ==
LOC: OLS.WHLCAR 05:00
PROVIDERS: PCP Family Medicine; Visit Provider Internal Medicine
DX: R53.83 Other fatigue (principal); D32.0 Benign neoplasm of cerebral meninges; C50.919 Malignant neoplasm of unspecified site of unspecified female breast; F02.818 Dementia in other diseases classified elsewhere, unspecified severity, with other behavioral disturbance
CPT/HCPCS: 36415; 80053; 85025

== ENCOUNTER → 2022-05-04 | Outpatient (REF) | payer MEDICARE, MEDICAID, SELFPAY ==
[2022-05-04 08:59] LABS: Absolute Lymphocyte Count 1.98 X10^3/uL (0.83-4.51); Absolute Neutrophil Count 3.7 X10^3/uL (2.0-7.7); Basophil# 0.05 X10^3/uL; Basophil% 0.8 % (0-1); Eosinophil# 0.05 X10^3/uL; Eosinophils% 0.8 % (0-5); Hemoglobin 12.3 g/dL (12.0-15.0); Lymphocyte # 1.98 X10^3/ul (0.83-4.51); Lymphocyte % 31.2 % (19-41); Mean Corp Hgb Conc 31.5 g/dL (32-36); Mean Corpuscular Hgb 28.4 pg (27.0-32.0); Mean Corpuscular Volume 90.1 fL (81-99); Mean Platelet Vol. 9.6 fl (6.2-12.0); Monocyte% 7.9 % (0-10); NRBC Flagged by Analyzer 0 % (0-5); Neutrophil # 3.73 X10^3/uL (2.7-7.7); Neutrophil % 58.8 % (47-70); Platelet Count 226 K/mm3 (150-450); RBC Distribution Width CV 12.5 % (11.6-14.6); RBC Distribution Width SD 41.2 fl (35.1-43.9); Red Blood Count 4.33 M/mm3 (4.2-5.4); White Blood Count 6.3 K/mm3 (4.4-11.0)
[2022-05-04 09:27] LABS: ALB/GLOB Ratio 1.1 RATIO (0.9-2.4); AST(SGOT) 26 U/L (15-37); Alanine Aminotransfer ALT/SGPT 38 U/L (13-56); Albumin, Serum 3.3 g/dL (3.2-5.0); Alkaline Phosphatase 75 U/L (45-117); Anion Gap 8 (5-15); BUN 24 mg/dL (7-18); BUN/Creat Ratio 29.9 RATIO (10-20); Calcium,Total 9.1 mg/dL (8.5-10.1); Chloride 110 mmol/L (98-107); Cholesterol 223 mg/dL (200); EST Glomerular Filtration Rate 73 mL/min (>60); Est Glom Filt Rate - Afr Amer 88 mL/min (>60); Globulin 3.1 g/dL (2.2-4.2); Glucose 91 mg/dL (74-106); High Density Lipoprotein 42 mg/dL; Potassium 3.7 mmol/L (3.5-5.1); Protein, Total 6.4 g/dL (6.4-8.2); Sodium Level 145 mmol/L (136-145); Triglycerides 142 mg/dL; Very Low Density Lipoprotein 28 mg/dL (5-40)
== END ==
LOC: OLS.WHLCAR 05:00
PROVIDERS: PCP Family Medicine; Visit Provider Internal Medicine
DX: I10 Essential (primary) hypertension (principal); D32.0 Benign neoplasm of cerebral meninges; C50.919 Malignant neoplasm of unspecified site of unspecified female breast; F02.818 Dementia in other diseases classified elsewhere, unspecified severity, with other behavioral disturbance
CPT/HCPCS: 36415; 80053; 80061; 85025

== ENCOUNTER → 2022-05-07 | Outpatient (REF) | payer MEDICARE, MEDICAID, SELFPAY ==
[2022-05-07 08:32] LABS: Color, Urine Yellow (Yellow); Glucose, Dipstick Normal (Normal); Ketone-Dipstick Negative (Negative); Leukocyte Esterase-Dipstick 500 /ul (Negative); Nitrite-Dipstick Positive (Negative); Occult Blood-Urine 250 /ul (Negative); Protein-Dipstick 30 mg/dl (Negative); Specific Gravity, Urine 1.025 (1.002-1.030); Urine Bilirubin Dipstick Negative (Negative); Urine Clarity Sl. Cloudy (Clear); Urine Urobilinogen Normal (Normal)
[2022-05-07 08:32] LABS: Absolute Lymphocyte Count 2.49 X10^3/uL (0.83-4.51); Absolute Neutrophil Count 3.4 X10^3/uL (2.0-7.7); Basophil# 0.04 X10^3/uL; Basophil% 0.6 % (0-1); Eosinophil# 0.07 X10^3/uL; Eosinophils% 1.1 % (0-5); Hematocrit 39.6 % (37-47); Hemoglobin 12.4 g/dL (12.0-15.0); Lymphocyte # 2.49 X10^3/ul (0.83-4.51); Lymphocyte % 37.8 % (19-41); Mean Corp Hgb Conc 31.3 g/dL (32-36); Mean Corpuscular Hgb 28.2 pg (27.0-32.0); Mean Platelet Vol. 10.2 fl (6.2-12.0); Monocyte# 0.53 X10^3/uL; Monocyte% 8.1 % (0-10); NRBC Flagged by Analyzer 0 % (0-5); Neutrophil # 3.42 X10^3/uL (2.7-7.7); Neutrophil % 51.9 % (47-70); Platelet Count 215 K/mm3 (150-450); RBC Distribution Width CV 12.4 % (11.6-14.6); White Blood Count 6.6 K/mm3 (4.4-11.0)
== END ==
LOC: OLS.WHLCAR 05:00
PROVIDERS: PCP Family Medicine; Visit Provider Internal Medicine
DX: N39.0 Urinary tract infection, site not specified (principal); R53.83 Other fatigue; D32.0 Benign neoplasm of cerebral meninges; C50.919 Malignant neoplasm of unspecified site of unspecified female breast; F02.818 Dementia in other diseases classified elsewhere, unspecified severity, with other behavioral disturbance
CPT/HCPCS: 36415; 81002; 85025; 87077; 87086; 87088; 87186

== ENCOUNTER → 2022-05-25 | Outpatient (REF) | payer MEDICARE, MEDICAID, SELFPAY ==
[2022-05-25 08:29] LABS: Absolute Lymphocyte Count 2.56 X10^3/uL (0.83-4.51); Absolute Neutrophil Count 6.7 X10^3/uL (2.0-7.7); Basophil# 0.05 X10^3/uL; Basophil% 0.5 % (0-1); Hematocrit 42.1 % (37-47); Hemoglobin 13.4 g/dL (12.0-15.0); Lymphocyte # 2.56 X10^3/ul (0.83-4.51); Lymphocyte % 25.3 % (19-41); Mean Corp Hgb Conc 31.8 g/dL (32-36); Mean Corpuscular Hgb 28.3 pg (27.0-32.0); Mean Platelet Vol. 9.6 fl (6.2-12.0); Monocyte% 5.9 % (0-10); NRBC Flagged by Analyzer 0 % (0-5); Neutrophil # 6.74 X10^3/uL (2.7-7.7); Neutrophil % 66.8 % (47-70); Platelet Count 245 K/mm3 (150-450); RBC Distribution Width CV 12.8 % (11.6-14.6); Red Blood Count 4.73 M/mm3 (4.2-5.4); White Blood Count 10.1 K/mm3 (4.4-11.0)
== END ==
LOC: OLS.WHLCAR 05:00
PROVIDERS: PCP Family Medicine; Visit Provider Internal Medicine
DX: D52.8 Other folate deficiency anemias (principal); D32.0 Benign neoplasm of cerebral meninges; C50.919 Malignant neoplasm of unspecified site of unspecified female breast; F02.818 Dementia in other diseases classified elsewhere, unspecified severity, with other behavioral disturbance
CPT/HCPCS: 36415; 85025

== ENCOUNTER → 2022-06-08 | Outpatient (REF) | payer MEDICARE, MEDICAID, SELFPAY ==
[2022-06-08 07:55] LABS: Absolute Lymphocyte Count 2.61 X10^3/uL (0.83-4.51); Absolute Neutrophil Count 3.2 X10^3/uL (2.0-7.7); Basophil# 0.06 X10^3/uL; Basophil% 0.9 % (0-1); Eosinophil# 0.07 X10^3/uL; Eosinophils% 1.1 % (0-5); Hematocrit 42.5 % (37-47); Hemoglobin 12.9 g/dL (12.0-15.0); Lymphocyte # 2.61 X10^3/ul (0.83-4.51); Mean Corp Hgb Conc 30.4 g/dL (32-36); Mean Corpuscular Hgb 28.2 pg (27.0-32.0); Mean Corpuscular Volume 92.8 fL (81-99); Mean Platelet Vol. 9.6 fl (6.2-12.0); Monocyte# 0.55 X10^3/uL; Monocyte% 8.4 % (0-10); NRBC Flagged by Analyzer 0 % (0-5); Neutrophil % 49.1 % (47-70); Platelet Count 190 K/mm3 (150-450); RBC Distribution Width CV 12.7 % (11.6-14.6); RBC Distribution Width SD 43.2 fl (35.1-43.9); Red Blood Count 4.58 M/mm3 (4.2-5.4); White Blood Count 6.5 K/mm3 (4.4-11.0)
== END ==
LOC: OLS.WHLCAR 05:00
PROVIDERS: PCP Family Medicine; Visit Provider Internal Medicine
DX: D52.8 Other folate deficiency anemias (principal); D32.0 Benign neoplasm of cerebral meninges; C50.919 Malignant neoplasm of unspecified site of unspecified female breast; F02.818 Dementia in other diseases classified elsewhere, unspecified severity, with other behavioral disturbance
CPT/HCPCS: 36415; 85025

== ENCOUNTER → 2022-06-19 | Outpatient (REF) | payer MEDICARE, MEDICAID, SELFPAY ==
[2022-06-19 08:18] LABS: Valproic Acid (Depakene) Level 5 ug/mL (50-100)
[2022-06-19 08:19] LABS: AST(SGOT) 25 U/L (15-37); Alanine Aminotransfer ALT/SGPT 27 U/L (13-56); Albumin, Serum 3.7 g/dL (3.2-5.0); Alkaline Phosphatase 85 U/L (45-117); Anion Gap 2 (5-15); BUN 17 mg/dL (7-18); BUN/Creat Ratio 21.5 RATIO (10-20); Bilirubin, Direct 0.13 mg/dL (0.00-0.30); Calcium,Total 9.4 mg/dL (8.5-10.1); Chloride 107 mmol/L (98-107); Creatinine, Serum 0.79 mg/dL (0.55-1.02); EST Glomerular Filtration Rate 74 mL/min (>60); Est Glom Filt Rate - Afr Amer 89 mL/min (>60); Globulin 3.6 g/dL (2.2-4.2); Glucose 89 mg/dL (74-106); Potassium 4.2 mmol/L (3.5-5.1); Protein, Total 7.3 g/dL (6.4-8.2); Sodium Level 136 mmol/L (136-145)
[2022-06-22 05:17] LABS: Absolute Lymphocyte Count 2.02 X10^3/uL (0.83-4.51); Absolute Neutrophil Count 3.9 X10^3/uL (2.0-7.7); Basophil# 0.05 X10^3/uL; Basophil% 0.8 % (0-1); Eosinophil# 0.07 X10^3/uL; Eosinophils% 1.1 % (0-5); Hemoglobin 13.7 g/dL (12.0-15.0); Lymphocyte # 2.02 X10^3/ul (0.83-4.51); Lymphocyte % 31.2 % (19-41); Mean Corp Hgb Conc 31.9 g/dL (32-36); Mean Corpuscular Hgb 28.6 pg (27.0-32.0); Mean Corpuscular Volume 89.8 fL (81-99); Mean Platelet Vol. 10.1 fl (6.2-12.0); Monocyte# 0.42 X10^3/uL; Monocyte% 6.5 % (0-10); NRBC Flagged by Analyzer 0 % (0-5); Neutrophil % 60.1 % (47-70); Platelet Count 253 K/mm3 (150-450); RBC Distribution Width CV 12.5 % (11.6-14.6); RBC Distribution Width SD 41.5 fl (35.1-43.9); Red Blood Count 4.79 M/mm3 (4.2-5.4); White Blood Count 6.5 K/mm3 (4.4-11.0)
== END ==
LOC: OLS.WHLCAR 05:00
PROVIDERS: PCP Family Medicine; Visit Provider Family Medicine
DX: D52.8 Other folate deficiency anemias (principal); D32.0 Benign neoplasm of cerebral meninges; C50.919 Malignant neoplasm of unspecified site of unspecified female breast; F02.818 Dementia in other diseases classified elsewhere, unspecified severity, with other behavioral disturbance; I10 Essential (primary) hypertension
CPT/HCPCS: 36415; 80053; 80164; 82248; 85025

== ENCOUNTER → 2022-06-29 | Outpatient (REF) | payer MEDICARE, MEDICAID, SELFPAY ==
[2022-06-29 09:54] LABS: Absolute Lymphocyte Count 2.35 X10^3/uL (0.83-4.51); Absolute Neutrophil Count 5.5 X10^3/uL (2.0-7.7); Basophil# 0.07 X10^3/uL; Basophil% 0.8 % (0-1); Eosinophil# 0.07 X10^3/uL; Eosinophils% 0.8 % (0-5); Hematocrit 40.4 % (37-47); Hemoglobin 12.9 g/dL (12.0-15.0); Lymphocyte # 2.35 X10^3/ul (0.83-4.51); Lymphocyte % 26.6 % (19-41); Mean Corp Hgb Conc 31.9 g/dL (32-36); Mean Corpuscular Hgb 27.9 pg (27.0-32.0); Mean Corpuscular Volume 87.3 fL (81-99); Mean Platelet Vol. 10.3 fl (6.2-12.0); Monocyte# 0.88 X10^3/uL; Monocyte% 9.9 % (0-10); NRBC Flagged by Analyzer 0 % (0-5); Neutrophil # 5.45 X10^3/uL (2.7-7.7); Neutrophil % 61.6 % (47-70); Platelet Count 270 K/mm3 (150-450); RBC Distribution Width SD 41.1 fl (35.1-43.9); Red Blood Count 4.63 M/mm3 (4.2-5.4); White Blood Count 8.9 K/mm3 (4.4-11.0)
[2022-06-29 10:21] LABS: ALB/GLOB Ratio 0.7 RATIO (0.9-2.4); AST(SGOT) 23 U/L (15-37); Alanine Aminotransfer ALT/SGPT 21 U/L (13-56); Albumin, Serum 3.1 g/dL (3.2-5.0); Alkaline Phosphatase 98 U/L (45-117); Anion Gap 10 (5-15); BUN 14 mg/dL (7-18); BUN/Creat Ratio 19.9 RATIO (10-20); Calcium,Total 8.9 mg/dL (8.5-10.1); Chloride 106 mmol/L (98-107); EST Glomerular Filtration Rate 85 mL/min (>60); Est Glom Filt Rate - Afr Amer 103 mL/min (>60); Globulin 4.2 g/dL (2.2-4.2); Glucose 109 mg/dL (74-106); Potassium 3.4 mmol/L (3.5-5.1); Protein, Total 7.3 g/dL (6.4-8.2); Sodium Level 138 mmol/L (136-145)
== END ==
LOC: OLS.WHLCAR 07:02
PROVIDERS: PCP Family Medicine; Referring Provider Internal Medicine; Visit Provider Internal Medicine
DX: G40.89 Other seizures (principal); D32.0 Benign neoplasm of cerebral meninges; C50.919 Malignant neoplasm of unspecified site of unspecified female breast; F02.818 Dementia in other diseases classified elsewhere, unspecified severity, with other behavioral disturbance
CPT/HCPCS: 36415; 80053; 85025

== ENCOUNTER → 2022-07-06 | Outpatient (REF) | payer MEDICARE, MEDICAID, SELFPAY ==
[2022-07-06 08:24] LABS: Absolute Lymphocyte Count 2.31 X10^3/uL (0.83-4.51); Absolute Neutrophil Count 4.6 X10^3/uL (2.0-7.7); Basophil# 0.05 X10^3/uL; Basophil% 0.7 % (0-1); Eosinophil# 0.08 X10^3/uL; Hematocrit 39.6 % (37-47); Hemoglobin 12.6 g/dL (12.0-15.0); Lymphocyte # 2.31 X10^3/ul (0.83-4.51); Lymphocyte % 30.3 % (19-41); Mean Corp Hgb Conc 31.8 g/dL (32-36); Mean Corpuscular Hgb 28.3 pg (27.0-32.0); Mean Platelet Vol. 9.7 fl (6.2-12.0); Monocyte# 0.57 X10^3/uL; Monocyte% 7.5 % (0-10); NRBC Flagged by Analyzer 0 % (0-5); Neutrophil # 4.55 X10^3/uL (2.7-7.7); Neutrophil % 59.7 % (47-70); Platelet Count 297 K/mm3 (150-450); RBC Distribution Width CV 12.4 % (11.6-14.6); RBC Distribution Width SD 40.1 fl (35.1-43.9); Red Blood Count 4.45 M/mm3 (4.2-5.4); White Blood Count 7.6 K/mm3 (4.4-11.0)
== END ==
LOC: OLS.WHLCAR 05:00
PROVIDERS: PCP Family Medicine; Visit Provider Internal Medicine
DX: D52.8 Other folate deficiency anemias (principal); D32.0 Benign neoplasm of cerebral meninges; C50.919 Malignant neoplasm of unspecified site of unspecified female breast; F02.818 Dementia in other diseases classified elsewhere, unspecified severity, with other behavioral disturbance
CPT/HCPCS: 36415; 85025

== ENCOUNTER → 2022-07-13 | Outpatient (REF) | payer MEDICARE, MEDICAID, SELFPAY ==
[2022-07-13 08:59] LABS: Potassium 4.2 mmol/L (3.5-5.1)
[2022-07-16 12:09] LABS: KEPPRA (LEVETIRACETAM) 15.8 ug/mL (10.0-40.0)
== END ==
LOC: OLS.WHLCAR 04:00
PROVIDERS: PCP Family Medicine; Referring Provider Internal Medicine; Visit Provider Internal Medicine
DX: G40.89 Other seizures (principal); D32.0 Benign neoplasm of cerebral meninges; C50.919 Malignant neoplasm of unspecified site of unspecified female breast; F02.818 Dementia in other diseases classified elsewhere, unspecified severity, with other behavioral disturbance
CPT/HCPCS: 36415; 80177; 84132

== ENCOUNTER → 2022-07-21 | Outpatient (REF) | payer MEDICARE, MEDICAID, SELFPAY ==
[2022-07-21 08:26] LABS: Absolute Lymphocyte Count 2.28 X10^3/uL (0.83-4.51); Absolute Neutrophil Count 3.7 X10^3/uL (2.0-7.7); Basophil# 0.05 X10^3/uL; Basophil% 0.7 % (0-1); Eosinophil# 0.09 X10^3/uL; Eosinophils% 1.3 % (0-5); Hematocrit 41.4 % (37-47); Hemoglobin 12.8 g/dL (12.0-15.0); Lymphocyte # 2.28 X10^3/ul (0.83-4.51); Lymphocyte % 33.7 % (19-41); Mean Corp Hgb Conc 30.9 g/dL (32-36); Mean Corpuscular Hgb 27.6 pg (27.0-32.0); Mean Corpuscular Volume 89.4 fL (81-99); Mean Platelet Vol. 9.7 fl (6.2-12.0); Monocyte# 0.57 X10^3/uL; Monocyte% 8.4 % (0-10); NRBC Flagged by Analyzer 0 % (0-5); Neutrophil # 3.74 X10^3/uL (2.7-7.7); Neutrophil % 55.5 % (47-70); Platelet Count 264 K/mm3 (150-450); RBC Distribution Width SD 42.5 fl (35.1-43.9); Red Blood Count 4.63 M/mm3 (4.2-5.4); White Blood Count 6.8 K/mm3 (4.4-11.0)
== END ==
LOC: OLS.WHLCAR 05:00
PROVIDERS: PCP Family Medicine; Visit Provider Internal Medicine
DX: C50.919 Malignant neoplasm of unspecified site of unspecified female breast (principal); D32.0 Benign neoplasm of cerebral meninges; F02.818 Dementia in other diseases classified elsewhere, unspecified severity, with other behavioral disturbance
CPT/HCPCS: 36415; 85025

== ENCOUNTER → 2022-08-04 | Outpatient (REF) | payer MEDICARE, MEDICAID, SELFPAY ==
[2022-08-04 08:33] LABS: Absolute Lymphocyte Count 1.66 X10^3/uL (0.83-4.51); Absolute Neutrophil Count 3.6 X10^3/uL (2.0-7.7); Basophil# 0.04 X10^3/uL; Basophil% 0.7 % (0-1); Eosinophil# 0.09 X10^3/uL; Eosinophils% 1.5 % (0-5); Hemoglobin 12.3 g/dL (12.0-15.0); Lymphocyte # 1.66 X10^3/ul (0.83-4.51); Lymphocyte % 28.5 % (19-41); Mean Corp Hgb Conc 32.4 g/dL (32-36); Mean Corpuscular Volume 86.6 fL (81-99); Mean Platelet Vol. 9.7 fl (6.2-12.0); Monocyte# 0.43 X10^3/uL; Monocyte% 7.4 % (0-10); NRBC Flagged by Analyzer 0 % (0-5); Neutrophil # 3.58 X10^3/uL (2.7-7.7); Neutrophil % 61.6 % (47-70); Platelet Count 225 K/mm3 (150-450); RBC Distribution Width SD 41.1 fl (35.1-43.9); Red Blood Count 4.39 M/mm3 (4.2-5.4); White Blood Count 5.8 K/mm3 (4.4-11.0)
== END ==
LOC: OLS.WHLCAR 04:30
PROVIDERS: PCP Family Medicine; Visit Provider Internal Medicine
DX: D52.8 Other folate deficiency anemias (principal); D32.0 Benign neoplasm of cerebral meninges; C50.919 Malignant neoplasm of unspecified site of unspecified female breast; F02.818 Dementia in other diseases classified elsewhere, unspecified severity, with other behavioral disturbance
CPT/HCPCS: 36415; 85025

== ENCOUNTER → 2022-08-17 | Outpatient (REF) | payer MEDICARE, MEDICAID, SELFPAY ==
[2022-08-17 08:35] LABS: Absolute Lymphocyte Count 2.16 X10^3/uL (0.83-4.51); Absolute Neutrophil Count 3.7 X10^3/uL (2.0-7.7); Basophil# 0.04 X10^3/uL; Basophil% 0.6 % (0-1); Eosinophil# 0.07 X10^3/uL; Eosinophils% 1.1 % (0-5); Hematocrit 36.6 % (37-47); Hemoglobin 11.8 g/dL (12.0-15.0); Lymphocyte # 2.16 X10^3/ul (0.83-4.51); Lymphocyte % 33.2 % (19-41); Mean Corp Hgb Conc 32.2 g/dL (32-36); Mean Corpuscular Hgb 28.2 pg (27.0-32.0); Mean Corpuscular Volume 87.4 fL (81-99); Mean Platelet Vol. 10.3 fl (6.2-12.0); Monocyte# 0.49 X10^3/uL; Monocyte% 7.5 % (0-10); NRBC Flagged by Analyzer 0 % (0-5); Neutrophil # 3.72 X10^3/uL (2.7-7.7); Neutrophil % 57.3 % (47-70); Platelet Count 232 K/mm3 (150-450); RBC Distribution Width SD 41.5 fl (35.1-43.9); Red Blood Count 4.19 M/mm3 (4.2-5.4); White Blood Count 6.5 K/mm3 (4.4-11.0)
== END ==
LOC: OLS.WHLCAR 05:00
PROVIDERS: PCP Family Medicine; Referring Provider Internal Medicine; Visit Provider Internal Medicine
DX: D52.8 Other folate deficiency anemias (principal); D32.0 Benign neoplasm of cerebral meninges; C50.919 Malignant neoplasm of unspecified site of unspecified female breast; F02.818 Dementia in other diseases classified elsewhere, unspecified severity, with other behavioral disturbance
CPT/HCPCS: 36415; 85025

== ENCOUNTER → 2022-08-31 | Outpatient (REF) | payer MEDICARE, MEDICAID, SELFPAY ==
[2022-08-31 08:09] LABS: Absolute Lymphocyte Count 2.09 X10^3/uL (0.83-4.51); Absolute Neutrophil Count 3.3 X10^3/uL (2.0-7.7); Basophil# 0.03 X10^3/uL; Basophil% 0.5 % (0-1); Eosinophil# 0.08 X10^3/uL; Eosinophils% 1.3 % (0-5); Hematocrit 38.7 % (37-47); Hemoglobin 12.6 g/dL (12.0-15.0); Lymphocyte # 2.09 X10^3/ul (0.83-4.51); Lymphocyte % 34.9 % (19-41); Mean Corp Hgb Conc 32.6 g/dL (32-36); Mean Corpuscular Hgb 28.2 pg (27.0-32.0); Mean Corpuscular Volume 86.6 fL (81-99); Monocyte# 0.43 X10^3/uL; Monocyte% 7.2 % (0-10); NRBC Flagged by Analyzer 0 % (0-5); Neutrophil # 3.32 X10^3/uL (2.7-7.7); Neutrophil % 55.4 % (47-70); Platelet Count 245 K/mm3 (150-450); RBC Distribution Width CV 12.8 % (11.6-14.6); RBC Distribution Width SD 40.2 fl (35.1-43.9); Red Blood Count 4.47 M/mm3 (4.2-5.4)
== END ==
LOC: OLS.WHLCAR 04:00
PROVIDERS: PCP Family Medicine; Referring Provider Internal Medicine; Visit Provider Internal Medicine
DX: D52.8 Other folate deficiency anemias (principal); D23.0 Other benign neoplasm of skin of lip; C50.919 Malignant neoplasm of unspecified site of unspecified female breast; F02.818 Dementia in other diseases classified elsewhere, unspecified severity, with other behavioral disturbance
CPT/HCPCS: 36415; 85025

== ENCOUNTER → 2022-09-11 | Outpatient (REF) | payer MEDICARE, MEDICAID, SELFPAY ==
[2022-09-11 08:38] LABS: Valproic Acid (Depakene) Level 4 ug/mL (50-100)
[2022-09-11 08:41] LABS: ALB/GLOB Ratio 0.9 RATIO (0.9-2.4); AST(SGOT) 16 U/L (15-37); Alanine Aminotransfer ALT/SGPT 19 U/L (13-56); Albumin, Serum 3.1 g/dL (3.2-5.0); Alkaline Phosphatase 79 U/L (45-117); Anion Gap 7 (5-15); BUN 15 mg/dL (7-18); BUN/Creat Ratio 20.9 RATIO (10-20); Bilirubin, Direct 0.08 mg/dL (0.00-0.30); Calcium,Total 8.7 mg/dL (8.5-10.1); Chloride 109 mmol/L (98-107); Creatinine, Serum 0.72 mg/dL (0.55-1.02); EST Glomerular Filtration Rate 83 mL/min (>60); Est Glom Filt Rate - Afr Amer 100 mL/min (>60); Globulin 3.3 g/dL (2.2-4.2); Glucose 83 mg/dL (74-106); Potassium 3.8 mmol/L (3.5-5.1); Protein, Total 6.4 g/dL (6.4-8.2); Sodium Level 141 mmol/L (136-145)
[2022-09-14 05:21] LABS: Absolute Neutrophil Count 3.2 X10^3/uL (2.0-7.7); Basophil# 0.06 X10^3/uL; Eosinophil# 0.08 X10^3/uL; Eosinophils% 1.4 % (0-5); Hematocrit 39.5 % (37-47); Hemoglobin 12.6 g/dL (12.0-15.0); Lymphocyte % 35.5 % (19-41); Mean Corp Hgb Conc 31.9 g/dL (32-36); Mean Corpuscular Hgb 28.3 pg (27.0-32.0); Mean Corpuscular Volume 88.6 fL (81-99); Monocyte% 8.4 % (0-10); NRBC Flagged by Analyzer 0 % (0-5); Neutrophil # 3.15 X10^3/uL (2.7-7.7); Neutrophil % 53.2 % (47-70); Platelet Count 247 K/mm3 (150-450); RBC Distribution Width CV 12.7 % (11.6-14.6); RBC Distribution Width SD 41.4 fl (35.1-43.9); Red Blood Count 4.46 M/mm3 (4.2-5.4); White Blood Count 5.9 K/mm3 (4.4-11.0)
== END ==
LOC: OLS.WHLCAR 05:00
PROVIDERS: PCP Family Medicine; Visit Provider Family Medicine
DX: D52.8 Other folate deficiency anemias (principal); D32.0 Benign neoplasm of cerebral meninges; C50.919 Malignant neoplasm of unspecified site of unspecified female breast; F02.818 Dementia in other diseases classified elsewhere, unspecified severity, with other behavioral disturbance; I10 Essential (primary) hypertension; Z79.899 Other long term (current) drug therapy
CPT/HCPCS: 36415; 80053; 80164; 82248; 85025

== ENCOUNTER → 2022-09-28 | Outpatient (REF) | payer MEDICARE, MEDICAID, SELFPAY ==
[2022-09-28 08:05] LABS: Absolute Neutrophil Count 3.7 X10^3/uL (2.0-7.7); Basophil# 0.04 X10^3/uL; Basophil% 0.7 % (0-1); Eosinophil# 0.05 X10^3/uL; Eosinophils% 0.9 % (0-5); Hematocrit 36.6 % (37-47); Hemoglobin 12.2 g/dL (12.0-15.0); Lymphocyte % 26.3 % (19-41); Mean Corp Hgb Conc 33.3 g/dL (32-36); Mean Corpuscular Hgb 28.1 pg (27.0-32.0); Mean Corpuscular Volume 84.3 fL (81-99); Mean Platelet Vol. 9.5 fl (6.2-12.0); Monocyte# 0.43 X10^3/uL; Monocyte% 7.5 % (0-10); NRBC Flagged by Analyzer 0 % (0-5); Neutrophil # 3.68 X10^3/uL (2.7-7.7); Neutrophil % 64.4 % (47-70); Platelet Count 217 K/mm3 (150-450); RBC Distribution Width CV 12.9 % (11.6-14.6); RBC Distribution Width SD 39.8 fl (35.1-43.9); Red Blood Count 4.34 M/mm3 (4.2-5.4); White Blood Count 5.7 K/mm3 (4.4-11.0)
[2022-09-29 17:07] LABS: KEPPRA (LEVETIRACETAM) 10.4 ug/mL (10.0-40.0)
== END ==
LOC: OLS.WHLCAR 05:00
PROVIDERS: PCP Family Medicine; Visit Provider Internal Medicine
DX: G40.89 Other seizures (principal); D32.0 Benign neoplasm of cerebral meninges; C50.919 Malignant neoplasm of unspecified site of unspecified female breast; C18.9 Malignant neoplasm of colon, unspecified; F03.90 Unspecified dementia, unspecified severity, without behavioral disturbance, psychotic disturbance, mood disturbance, and anxiety
CPT/HCPCS: 36415; 80177; 85025

== ENCOUNTER → 2022-10-13 | Outpatient (REF) | payer MEDICARE, MEDICAID, SELFPAY ==
[2022-10-13 09:43] LABS: Absolute Lymphocyte Count 1.84 X10^3/uL (0.83-4.51); Absolute Neutrophil Count 2.8 X10^3/uL (2.0-7.7); Basophil# 0.04 X10^3/uL; Basophil% 0.8 % (0-1); Eosinophil# 0.05 X10^3/uL; Hematocrit 37.5 % (37-47); Hemoglobin 11.9 g/dL (12.0-15.0); Lymphocyte # 1.84 X10^3/ul (0.83-4.51); Lymphocyte % 35.4 % (19-41); Mean Corp Hgb Conc 31.7 g/dL (32-36); Mean Corpuscular Hgb 27.6 pg (27.0-32.0); Mean Platelet Vol. 9.9 fl (6.2-12.0); Monocyte# 0.42 X10^3/uL; Monocyte% 8.1 % (0-10); NRBC Flagged by Analyzer 0 % (0-5); Neutrophil # 2.83 X10^3/uL (2.7-7.7); Neutrophil % 54.3 % (47-70); Platelet Count 225 K/mm3 (150-450); RBC Distribution Width CV 13.2 % (11.6-14.6); RBC Distribution Width SD 41.2 fl (35.1-43.9); Red Blood Count 4.31 M/mm3 (4.2-5.4); White Blood Count 5.2 K/mm3 (4.4-11.0)
== END ==
LOC: OLS.WHLEAS 05:00
PROVIDERS: PCP Family Medicine; Visit Provider Internal Medicine
DX: D52.8 Other folate deficiency anemias (principal); D32.0 Benign neoplasm of cerebral meninges; C50.919 Malignant neoplasm of unspecified site of unspecified female breast; F02.818 Dementia in other diseases classified elsewhere, unspecified severity, with other behavioral disturbance; Z79.899 Other long term (current) drug therapy
CPT/HCPCS: 36415; 85025

== ENCOUNTER → 2022-11-09 | Outpatient (REF) | payer MEDICARE, MEDICAID, SELFPAY ==
[2022-11-09 07:34] LABS: Absolute Lymphocyte Count 1.92 X10^3/uL (0.83-4.51); Absolute Neutrophil Count 2.6 X10^3/uL (2.0-7.7); Basophil# 0.04 X10^3/uL; Basophil% 0.8 % (0-1); Eosinophil# 0.07 X10^3/uL; Eosinophils% 1.4 % (0-5); Hematocrit 39.6 % (37-47); Hemoglobin 12.4 g/dL (12.0-15.0); Lymphocyte # 1.92 X10^3/ul (0.83-4.51); Lymphocyte % 37.8 % (19-41); Mean Corp Hgb Conc 31.3 g/dL (32-36); Mean Corpuscular Hgb 27.4 pg (27.0-32.0); Mean Corpuscular Volume 87.4 fL (81-99); Mean Platelet Vol. 10.2 fl (6.2-12.0); Monocyte# 0.41 X10^3/uL; Monocyte% 8.1 % (0-10); NRBC Flagged by Analyzer 0 % (0-5); Neutrophil # 2.62 X10^3/uL (2.7-7.7); Neutrophil % 51.5 % (47-70); Platelet Count 208 K/mm3 (150-450); RBC Distribution Width CV 12.8 % (11.6-14.6); RBC Distribution Width SD 40.6 fl (35.1-43.9); Red Blood Count 4.53 M/mm3 (4.2-5.4); White Blood Count 5.1 K/mm3 (4.4-11.0)
== END ==
LOC: OLS.WHLCAR 05:00
PROVIDERS: PCP Family Medicine; Visit Provider Internal Medicine
DX: D52.8 Other folate deficiency anemias (principal); D32.0 Benign neoplasm of cerebral meninges; C50.919 Malignant neoplasm of unspecified site of unspecified female breast; F02.818 Dementia in other diseases classified elsewhere, unspecified severity, with other behavioral disturbance
CPT/HCPCS: 36415; 85025

== ENCOUNTER → 2022-11-23 | Outpatient (REF) | payer MEDICARE, MEDICAID, SELFPAY ==
[2022-11-23 09:23] LABS: Absolute Lymphocyte Count 1.88 X10^3/uL (0.83-4.51); Absolute Neutrophil Count 3.3 X10^3/uL (2.0-7.7); Basophil# 0.03 X10^3/uL; Basophil% 0.5 % (0-1); Eosinophil# 0.05 X10^3/uL; Eosinophils% 0.9 % (0-5); Hematocrit 36.9 % (37-47); Hemoglobin 11.9 g/dL (12.0-15.0); Lymphocyte # 1.88 X10^3/ul (0.83-4.51); Lymphocyte % 32.6 % (19-41); Mean Corp Hgb Conc 32.2 g/dL (32-36); Mean Corpuscular Hgb 27.9 pg (27.0-32.0); Mean Corpuscular Volume 86.4 fL (81-99); Mean Platelet Vol. 10.2 fl (6.2-12.0); Monocyte# 0.47 X10^3/uL; Monocyte% 8.2 % (0-10); NRBC Flagged by Analyzer 0 % (0-5); Neutrophil # 3.32 X10^3/uL (2.7-7.7); Neutrophil % 57.6 % (47-70); Platelet Count 214 K/mm3 (150-450); RBC Distribution Width CV 12.9 % (11.6-14.6); RBC Distribution Width SD 40.3 fl (35.1-43.9); Red Blood Count 4.27 M/mm3 (4.2-5.4); White Blood Count 5.8 K/mm3 (4.4-11.0)
== END ==
LOC: OLS.WHLCAR 05:10
PROVIDERS: PCP Family Medicine; Visit Provider Internal Medicine
DX: D52.8 Other folate deficiency anemias (principal); D32.0 Benign neoplasm of cerebral meninges; C50.919 Malignant neoplasm of unspecified site of unspecified female breast
CPT/HCPCS: 36415; 85025

== ENCOUNTER → 2022-12-04 | Outpatient (REF) | payer MEDICARE, MEDICAID, SELFPAY ==
[2022-12-04 09:17] LABS: Valproic Acid (Depakene) Level < 3 ug/mL (50-100)
[2022-12-04 09:22] LABS: AST(SGOT) 16 U/L (15-37); Alanine Aminotransfer ALT/SGPT 24 U/L (13-56); Albumin, Serum 3.2 g/dL (3.2-5.0); Alkaline Phosphatase 81 U/L (45-117); Anion Gap 8 (5-15); BUN 13 mg/dL (7-18); BUN/Creat Ratio 18.4 RATIO (10-20); Bilirubin, Direct 0.14 mg/dL (0.00-0.30); Calcium,Total 8.8 mg/dL (8.5-10.1); Chloride 109 mmol/L (98-107); Creatinine, Serum 0.71 mg/dL (0.55-1.02); EST Glomerular Filtration Rate 84 mL/min (>60); Est Glom Filt Rate - Afr Amer 102 mL/min (>60); Globulin 3.1 g/dL (2.2-4.2); Glucose 88 mg/dL (74-106); Potassium 3.8 mmol/L (3.5-5.1); Protein, Total 6.3 g/dL (6.4-8.2); Sodium Level 144 mmol/L (136-145)
== END ==
LOC: OLS.WHLCAR 05:00
PROVIDERS: PCP Family Medicine; Visit Provider Internal Medicine
DX: I10 Essential (primary) hypertension (principal); Z79.899 Other long term (current) drug therapy; D32.0 Benign neoplasm of cerebral meninges; C50.919 Malignant neoplasm of unspecified site of unspecified female breast; C18.9 Malignant neoplasm of colon, unspecified; F03.90 Unspecified dementia, unspecified severity, without behavioral disturbance, psychotic disturbance, mood disturbance, and anxiety
CPT/HCPCS: 36415; 80053; 80164; 82248

== ENCOUNTER → 2022-12-07 | Outpatient (REF) | payer MEDICARE, MEDICAID, SELFPAY ==
[2022-12-07 08:05] LABS: Bacteria 0 SEEN /hpf (None Seen); Mucous, Urine 0 SEEN /hpf (<or=2+); Squamous Epithelial Cells - UA 0 SEEN /hpf (5-10)
[2022-12-07 08:12] LABS: Color, Urine Yellow (Yellow); Glucose, Dipstick Normal (Normal); Ketone-Dipstick Negative (Negative); Leukocyte Esterase-Dipstick 25 /ul (Negative); Nitrite-Dipstick Positive (Negative); Occult Blood-Urine 25 /ul (Negative); Protein-Dipstick Negative (Negative); Specific Gravity, Urine 1.015 (1.002-1.030); Urine Bilirubin Dipstick Negative (Negative); Urine Clarity Clear (Clear); Urine Urobilinogen Normal (Normal)
[2022-12-07 08:20] LABS: Amorphous Sediment 1+; Calcium Oxalate Crystals Ur RARE /hpf (<or=2+); Red Blood Cells-Urine 0-5 SEEN /hpf (0-5); White Blood Cells 5-10 SEEN /hpf (0-5)
[2022-12-07 08:28] LABS: Absolute Lymphocyte Count 2.23 X10^3/uL (0.83-4.51); Absolute Neutrophil Count 2.7 X10^3/uL (2.0-7.7); Basophil# 0.04 X10^3/uL; Basophil% 0.7 % (0-1); Eosinophil# 0.04 X10^3/uL; Eosinophils% 0.7 % (0-5); Hematocrit 38.9 % (37-47); Hemoglobin 12.2 g/dL (12.0-15.0); Lymphocyte # 2.23 X10^3/ul (0.83-4.51); Lymphocyte % 41.2 % (19-41); Mean Corp Hgb Conc 31.4 g/dL (32-36); Mean Corpuscular Volume 89.2 fL (81-99); Mean Platelet Vol. 10.3 fl (6.2-12.0); Monocyte# 0.38 X10^3/uL; NRBC Flagged by Analyzer 0 % (0-5); Platelet Count 225 K/mm3 (150-450); RBC Distribution Width CV 12.9 % (11.6-14.6); RBC Distribution Width SD 42.5 fl (35.1-43.9); Red Blood Count 4.36 M/mm3 (4.2-5.4); White Blood Count 5.4 K/mm3 (4.4-11.0)
[2022-12-07 08:54] LABS: ALB/GLOB Ratio 0.9 RATIO (0.9-2.4); AST(SGOT) 21 U/L (15-37); Alanine Aminotransfer ALT/SGPT 22 U/L (13-56); Albumin, Serum 3.1 g/dL (3.2-5.0); Alkaline Phosphatase 82 U/L (45-117); Anion Gap 6 (5-15); BUN 19 mg/dL (7-18); BUN/Creat Ratio 25.7 RATIO (10-20); Calcium,Total 8.7 mg/dL (8.5-10.1); Chloride 113 mmol/L (98-107); Creatinine, Serum 0.74 mg/dL (0.55-1.02); EST Glomerular Filtration Rate 80 mL/min (>60); Est Glom Filt Rate - Afr Amer 97 mL/min (>60); Globulin 3.4 g/dL (2.2-4.2); Glucose 87 mg/dL (74-106); Potassium 3.7 mmol/L (3.5-5.1); Protein, Total 6.5 g/dL (6.4-8.2); Sodium Level 143 mmol/L (136-145)
== END ==
LOC: OLS.WHLCAR 05:00
PROVIDERS: PCP Family Medicine; Visit Provider Internal Medicine
DX: D52.8 Other folate deficiency anemias (principal); R82.90 Unspecified abnormal findings in urine
CPT/HCPCS: 36415; 80053; 81001; 85025; 87086; 87088; 87186

== ENCOUNTER → 2022-12-21 | Outpatient (REF) | payer MEDICARE, MEDICAID, SELFPAY ==
[2022-12-21 08:32] LABS: Absolute Lymphocyte Count 1.97 X10^3/uL (0.83-4.51); Absolute Neutrophil Count 2.8 X10^3/uL (2.0-7.7); Basophil# 0.03 X10^3/uL; Basophil% 0.6 % (0-1); Eosinophil# 0.06 X10^3/uL; Eosinophils% 1.1 % (0-5); Hematocrit 39.1 % (37-47); Hemoglobin 12.2 g/dL (12.0-15.0); Lymphocyte # 1.97 X10^3/ul (0.83-4.51); Lymphocyte % 36.8 % (19-41); Mean Corp Hgb Conc 31.2 g/dL (32-36); Mean Corpuscular Hgb 27.8 pg (27.0-32.0); Mean Corpuscular Volume 89.1 fL (81-99); Mean Platelet Vol. 10.1 fl (6.2-12.0); Monocyte# 0.48 X10^3/uL; NRBC Flagged by Analyzer 0 % (0-5); Neutrophil # 2.79 X10^3/uL (2.7-7.7); Neutrophil % 52.1 % (47-70); Platelet Count 201 K/mm3 (150-450); RBC Distribution Width CV 13.1 % (11.6-14.6); RBC Distribution Width SD 42.8 fl (35.1-43.9); Red Blood Count 4.39 M/mm3 (4.2-5.4); White Blood Count 5.4 K/mm3 (4.4-11.0)
== END ==
LOC: OLS.WHLCAR 05:00
PROVIDERS: PCP Family Medicine; Visit Provider Internal Medicine
DX: D52.8 Other folate deficiency anemias (principal)
CPT/HCPCS: 36415; 85025

== ENCOUNTER → 2023-01-04 | Outpatient (REF) | payer MEDICARE, MEDICAID, SELFPAY ==
--- OUTSIDE RECORDS SUMMARY | 2023-01-04 04:07 | XMS RPT_ITS | CCD ---
Author Name Unknown Address [address] [place] [address] Organization [facility] Results Test Name Value Interpretation Reference Range Facil ity Summary Purpose Family History No Family History Records Found Advance Directives No Advanced Directives Records Found Additional Source Comments INFORMATION SOURCE (unrecogn ized section and content) FOR RECORDS PERTAINING TO PATIENTS WHO ARE OR HAVE BEEN ENROLLED IN A CHEMICAL DEPENDENCY/SUBSTANCEABUSE PROGRAM, SOME INFORMATION MAY BE OMITTED. This clinical summary was aggregated from multiple sources. Caution should be exercised in using it in the provision of clinical care. This summary normalizes information from multiple sources, and as a consequence, information in this document may materially change the coding, format and clinical context of patient data. In addition, data may be omitted in some cases. CLINICAL DECISIONS SHOULD BE BASED ON THE PRIMARY CLINICAL RECORDS. [employer] provides no warranty or guarantee of the accuracy or completeness of information in this document.
[2023-01-04 08:43] LABS: Absolute Lymphocyte Count 1.96 X10^3/uL (0.83-4.51); Absolute Neutrophil Count 3.5 X10^3/uL (2.0-7.7); Basophil# 0.04 X10^3/uL; Basophil% 0.7 % (0-1); Eosinophil# 0.06 X10^3/uL; Hematocrit 41.9 % (37-47); Hemoglobin 13.1 g/dL (12.0-15.0); Lymphocyte # 1.96 X10^3/ul (0.83-4.51); Lymphocyte % 32.5 % (19-41); Mean Corp Hgb Conc 31.3 g/dL (32-36); Mean Corpuscular Hgb 27.6 pg (27.0-32.0); Mean Corpuscular Volume 88.2 fL (81-99); Mean Platelet Vol. 10.2 fl (6.2-12.0); Monocyte# 0.46 X10^3/uL; Monocyte% 7.6 % (0-10); NRBC Flagged by Analyzer 0 % (0-5); Neutrophil # 3.49 X10^3/uL (2.7-7.7); Neutrophil % 57.9 % (47-70); Platelet Count 227 K/mm3 (150-450); Red Blood Count 4.75 M/mm3 (4.2-5.4)
== END ==
LOC: OLS.WHLCAR 04:00
PROVIDERS: PCP Family Medicine; Referring Provider Internal Medicine; Visit Provider Internal Medicine
DX: D52.8 Other folate deficiency anemias (principal)
CPT/HCPCS: 36415; 85025

== ENCOUNTER → 2023-05-18 | Outpatient (REF) | payer SELFPAY ==
[2023-05-20 08:11] LABS: KEPPRA (LEVETIRACETAM) 20.1 ug/mL (10.0-40.0)
== END ==
LOC: OLS.WHLCAR 05:00
PROVIDERS: PCP Family Medicine; Visit Provider Internal Medicine
DX: G40.89 Other seizures (principal)
CPT/HCPCS: 36415; 80177